=== PATIENT | female | born 2000 | race Hispanic/Latino ===

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

== ENCOUNTER 2021-11-26 13:27 | Inpatient (IN) | payer MEDICAID, SELFPAY ==
[2021-11-26 13:47] LABS: Urine Blood 1+ (Negative); Urine Glucose Negative (Negative); Urine Protein Negative (Negative); Urine pH 7.5 (5.0-7.0)
[2021-11-26 14:39] LABS: Absolute Lymphocytes (CBC) 0.8 K/uL (0.7-4.9); Hematocrit 42.1 % (36.0-45.0); Lymphocytes % 5.5 % (15.3-44.8); MPV 9.4 fL (7.6-11.3); RBC Red Blood Cell Count 4.54 M/uL (3.86-4.86)
[2021-11-26] MEDS ORDERED: NA CHLORIDE 0.9% 1,000 ML ONE (14:46)
[2021-11-26] MEDS ORDERED: MORPHINE 4 MG/ML SYR ONE (14:46)
[2021-11-26] MEDS ORDERED: ONDANSETRON 4 MG/2 ML VIAL ONE ×2 (14:46→18:25)
[2021-11-26 15:07] LABS: Albumin 4.2 g/dL (3.4-5.0); Bilirubin Total 0.5 mg/dL (0.2-1.0); Potassium 3.9 mmol/L (3.5-5.1); Protein, Total 7.6 g/dL (6.4-8.2)
--- NOTE | 2021-11-26 16:08 | RAD REPORT ---
EXAM DESCRIPTION: CT - Abdomen Pelvis W Contrast - 11/26/2021 3:41 pm CLINICAL HISTORY: RUQ, R flank and RLQ pain COMPARISON: Abdomen Pelvis W Contrast dated 08/31/2019 TECHNIQUE: Biphasic, helical CT imaging of the abdomen and pelvis was performed following 100 ml non -ionic IV contrast. No oral contrast administered. All CT scans are performed using dose optimization technique as appropriate and may include automated exposure control or mA/KV adjustment according to patient size. FINDINGS: No suspicious findings in the lung bases. The liver, spleen, and pancreas show no suspicious findings. Gallbladder and biliary tree are also wi thout suspicious finding. Symmetric renal function is seen with no hydronephrosis or suspicious renal mass. No pyelonephritis o r acute parenchymal process. No bladder abnormalities. No adrenal abnormalities. Uterus and ovaries s how no suspicious findings. Incidental 17 millimeter left ovarian cyst present. No gastric dilatation gastric wall thickening. Appendix is grossly abnormal. There is thickening and edema at the tip of the cecum. The appendix is at least 13 mm in diameter. No appendicolith present. Hough of the midportion and base are poorly defined. There is surrounding edematous/inflammatory soft tissue. Reactive free fluid is collecting in the dependent portion of the pelvis and in the right ad nexae. No defined abscess at this time. No extraluminal free air. Terminal ileum does not appear to b e involved to any measurable degree. No suspicious small bowel finding. The appendix is unremarkable other than the changes at the tip of the cecum. No hernia, mass or bulky lymphadenopathy. No suspicious bony findings. Findings telephoned to the referring clinician 4:05 p.m.. IMPRESSION: Acute appendicitis with high likelihood of perforation. Tip of the cecum is classic right lower quadrant location. The appendix tracks medially with the tip in the midline of the pelvis.
--- NOTE | 2021-11-26 16:14 | ER ---
Nurse's Notes [facility] Name: Kanchan Bro Age: 21 yrs Sex: Female : 2000 Arrival Date: 11/26/2021 Time: 13:29 Bed 25 Private MD: Diagnosis: Unspecified acute appendicitis Presentation: 11/26 13:33 Chief complaint: Patient states: i got real sharp pains on my RIGHT side that started tw2 last night. and then today again. its worse when i lay flat and also i have to go urinate often. Coronavirus screen: At this time, the client does not indicate any symptoms associated with coronavirus-19. Ebola Screen: Patient denies travel to an Ebola-affected area in the 21 days before illness onset. Initial Sepsis Screen: Does the patient meet any 2 criteria? HR > 90 bpm. No. Patient's initial sepsis screen is negative. Does the patient have a suspected source of infection? No. Patient's initial sepsis screen is negative. Risk Assessment: Do you want to hurt yourself or someone else? Patient reports no desire to harm self or others. Onset of symptoms was November 26, 2021. 13:33 Method Of Arrival: Ambulatory tw2 13:33 Acuity: BRINA 3 tw2 Triage Assessment: 13:35 General: Appears in no apparent distress. Behavior is calm, cooperative, appropriate tw2 for age. Pain: Complains of pain in right lower quadrant. GI: Reports lower abdominal pain, upper abdominal pain. : Reports urinary frequency. 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 - Social history:: Smoking status: Patient denies any tobacco usage or history of. Screenin:36 Abuse screen: Denies threats or abuse. Nutritional screening: No deficits noted. tw2 Tuberculosis screening: No symptoms or risk factors identified. Fall Risk None identified. Assessment: 15:00 General: Appears uncomfortable, Behavior is cooperative. Pain: Complains of pain in ww right lower quadrant. Neuro: Level of Consciousness is awake, alert, obeys commands, Oriented to person, place, time, situation, Moves all extremities. Gait is steady, Speech is normal. Cardiovascular: Patient's skin is warm and dry. Respiratory: Airway is patent Respiratory effort is even, unlabored, Respiratory pattern is regular, symmetrical. GI: Abdomen is non-distended, Abdomen is tender to palpation in right upper quadrant and right lower quadrant. Derm: Skin is intact, is healthy with good turgor, Skin is pink, warm \T\ dry. 16:15 Reassessment: Patient appears in no apparent distress at this time. No changes from previously documented assessment. Patient and/or family updated on plan of care and expected duration. Pain level reassessed. Patient is alert, oriented x 3, equal unlabored respirations, skin warm/dry/pink. 17:14 Reassessment: Patient appears in no apparent distress at this time. No changes from ww previously documented assessment. Patient and/or family updated on plan of care and expected duration. Pain level reassessed. Patient is alert, oriented x 3, equal unlabored respirations, skin warm/dry/pink. 18:14 Reassessment: Patient appears in no apparent distress at this time. No changes from ww previously documented assessment. Patient and/or family updated on plan of care and expected duration. Pain level reassessed. Patient is alert, oriented x 3, equal unlabored respirations, skin warm/dry/pink. transported to OR. Vital Signs: 13:33 BP 139 / 72; Pulse 103; Resp 17; Temp 98(TE); Pulse Ox 100% on R/A; Weight 78.47 kg tw2 (R); Height 5 ft. 7 in. (170.18 cm); Pain 10/10; 13:33 Body Mass Index 27.10 (78.47 kg, 170.18 cm) tw2 ED Course: 13:29 Patient arrived in ED. jj6 13:31 [facility] jh7 13:31 Sadi Barton MD is Attending Physician. jh7 13:35 Triage completed. tw2 13:36 Arm band placed on. tw2 14:03 Bed in low position. Call light in reach. tw2 14:17 Rosalia Lawson, RN is Primary Nurse. ww 15:43 CT Abd/Pelvis - IV Contrast Only In Process Unspecified. EDAR 16:12 Joao Wise MD is Hospitalizing Provider. [facility] 18:14 No provider procedures requiring assistance completed. Patient admitted, IV remains in ww place. Administered Medications: 14:40 Drug: NS 0.9% 1000 ml Route: IV; Rate: 1 bolus; Site: left antecubital; ww 14:41 Drug: Zofran (Ondansetron) 4 mg Route: IVP; Site: left antecubital; ww 14:49 Drug: morphine 4 mg Route: IVP; Infused Over: 4 mins; Site: left antecubital; ww 16:45 Drug: Zosyn (piperacillin-tazobactam) 3.375 grams Route: IVPB; Infused Over: 60 mins; ww Site: left antecubital; 17:34 Drug: Flagyl (metroNIDAZOLE) 500 mg Volume: 100 ml; Route: IVPB; Rate: 200 ml/hr; ww Infused Over: 30 mins; Site: left antecubital; Medication: 13:49 VIS not applicable for this client. [facility] Outcome: 16:14 Decision to Hospitalize by Provider. [facility] 18:14 Admitted to OR accompanied by nurse, via stretcher, with chart. 18:14 Condition: stable 18:14 Instructed on the need for admit. 18:15 Patient left the ED. Signatures: Dispatcher [employer] Karly Arias, RN RN tw2 Ivory Rocha jj6 Rosalia Lawson RN RN ww Ivory Palomino, RECRUITING INTERN RECRUITING INTERN [facility]
--- NOTE | 2021-11-26 16:15 | EDPHYS ---
Physician Documentation [facility] Name: Kanchan Bro Age: 21 yrs Sex: Female : 2000 Arrival Date: 11/26/2021 Time: 13:29 Bed 25 Private MD: JENSEN Physician Sadi Barton HPI: 11/26 13:40 This 21 yrs old Female presents to ER via Ambulatory with complaints of jh7 Abdominal Pain. 13:40 The patient presents with abdominal pain in the right upper quadrant, right lower jh7 quadrant. Onset: The symptoms/episode began/occurred last night. Associated signs and symptoms: Pertinent negatives: nausea, vomiting, and diarrhea, chest pain, fever. Patient reports right upper quadrant pain radiating to her right flank and right lower quadrant since 1 AM. Denies nausea vomiting, diarrhea, and fever. States that it might possibly be a pulled muscle, but wants to ensure that it is not her gallbladder or appendix. Rates pain as 10 out of 10. No past medical history.. 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 - Social history:: Smoking status: Patient denies any tobacco usage or history of. ROS: 13:40 Constitutional: Negative for fever, chills, and weight loss, ENT: Negative for injury, jh7 pain, and discharge, Neck: Negative for injury, pain, and swelling, Cardiovascular: Negative for chest pain, palpitations, and edema, Respiratory: Negative for shortness of breath, cough, wheezing, and pleuritic chest pain, Back: Negative for injury and pain, Skin: Negative for injury, rash, and discoloration, Neuro: Negative for headache, weakness, numbness, tingling, and seizure. 13:40 Abdomen/GI: Positive for abdominal pain, Negative for nausea, vomiting, and diarrhea, dysphagia, rectal bleeding. 13:40 All other systems are negative. Exam: 13:40 Abdomen/GI: Inspection: abdomen appears normal, Bowel sounds: normal, Palpation: mild jh7 abdominal tenderness, in the right upper quadrant and right lower quadrant. 13:40 Constitutional: This is a well developed, well nourished patient who is awake, alert, jh7 and in no acute distress. Head/Face: Normocephalic, atraumatic. ENT: Nares patent. No nasal discharge, no septal abnormalities noted. Tympanic membranes are normal and external auditory canals are clear. Oropharynx with no redness, swelling, or masses, exudates, or evidence of obstruction, uvula midline. Mucous membranes moist. Cardiovascular: Regular rate and rhythm with a normal S1 and S2. No gallops, murmurs, or rubs. Normal PMI, no JVD. No pulse deficits. Respiratory: Lungs have equal breath sounds bilaterally, clear to auscultation and percussion. No rales, rhonchi or wheezes noted. No increased work of breathing, no retractions or nasal flaring. Back: No spinal tenderness. No costovertebral tenderness. Full range of motion. Skin: Warm, dry with normal turgor. Normal color with no rashes, no lesions, and no evidence of cellulitis. Neuro: Awake and alert, GCS 15, oriented to person, place, time, and situation. Normal gait. Vital Signs: 13:33 BP 139 / 72; Pulse 103; Resp 17; Temp 98(TE); Pulse Ox 100% on R/A; Weight 78.47 kg tw2 (R); Height 5 ft. 7 in. (170.18 cm); Pain 10/10; 13:33 Body Mass Index 27.10 (78.47 kg, 170.18 cm) tw2 MDM: 13:57 Patient medically screened. [facility] 16:05 Differential diagnosis: appendicitis, cholecystitis, gastritis, gastroesophageal reflux [facility] disease. Data reviewed: vital signs, nurses notes, lab test result(s), radiologic studies, CT scan. Data interpreted: Pulse oximetry: is 100 %. Interpretation: normal. Counseling: I had a detailed discussion with the patient and/or guardian regarding: the historical points, exam findings, and any diagnostic results supporting the discharge/admit diagnosis, the need for further work-up and treatment in the hospital. Physician consultation: Joao Wise MD was called at 16:05, was contacted at 16:05, regarding patient's condition, and will see patient in ED, would like medications started, Zosyn, Flagyl. ED course: The patient was admitted under inpatient status for acute appendicitis with likely perforation. The patient's pain was relieved after morphine was administered. Explained to the patient that she would meet the general surgeon soon, and will be needing surgery. Answered all of the patient's questions and concerns.. 11/26 13:47 Order name: Urine Dipstick-Ancillary; Complete Time: 14:28 [facility] 11/26 13:50 Order name: CBC with Diff; Complete Time: 15:05 [facility] 11/26 13:50 Order name: CMP; Complete Time: 15:15 [facility] 11/26 13:50 Order name: Lipase; Complete Time: 15:15 [facility] 11/26 13:50 Order name: Urine Microscopic Only [facility] 11/26 14:55 Order name: Urine --Ancillary (enter results); Complete Time: 15:15 11/26 13:50 Order name: CT Abd/Pelvis - IV Contrast Only; Complete Time: 16:12 [facility] 11/26 16:12 Order name: SARS-COV-2 RT PCR (Document "Date of Onset" if Symptomatic) [facility] 11/26 17:24 Order name: Basic Metabolic Panel [facility] 11/26 17:24 Order name: Basic Metabolic Panel [facility] 11/26 17:24 Order name: CBC with Automated Diff [facility] 11/26 17:24 Order name: CBC with Automated Diff [facility] 11/26 13:48 Order name: Urine Dipstick-Ancillary (obtain specimen); Complete Time: 13:48 [facility] 11/26 13:48 Order name: Urine Test (obtain specimen); Complete Time: 13:48 [facility] 11/26 13:50 Order name: IV Saline Lock; Complete Time: 14:33 [facility] 11/26 13:50 Order name: Labs collected and sent; Complete Time: 14:33 [facility] 11/26 17:24 Order name: NPO EDMS Administered Medications: 14:40 Drug: NS 0.9% 1000 ml Route: IV; Rate: 1 bolus; Site: left antecubital; ww 14:41 Drug: Zofran (Ondansetron) 4 mg Route: IVP; Site: left antecubital; ww 14:49 Drug: morphine 4 mg Route: IVP; Infused Over: 4 mins; Site: left antecubital; ww 16:45 Drug: Zosyn (piperacillin-tazobactam) 3.375 grams Route: IVPB; Infused Over: 60 mins; ww Site: left antecubital; 17:34 Drug: Flagyl (metroNIDAZOLE) 500 mg Volume: 100 ml; Route: IVPB; Rate: 200 ml/hr; ww Infused Over: 30 mins; Site: left antecubital; Disposition Summary: 11/26/21 16:14 Hospitalization Ordered Hospitalization Status: Inpatient Admission [facility] Provider: Joao Wise [facility] Location: Telemetry/MedSur (Inpatient) [facility] Condition: Stable [facility] Problem: new [facility] Symptoms: have improved [facility] Bed/Room Type: Standard [facility] Room Assignment: [facility] Diagnosis - Unspecified acute appendicitis [facility] Forms: - Medication Reconciliation Form [facility] - SBAR form [facility] Addendum: 12/03/2021 13:44 Co-signature as Attending Physician, Sadi Barton MD I agree with the assessment and c may plan of care. Signatures: Dispatcher [employer] EDSadi Constantino MD MD cha Wise, Tara, RN RN 2 Rosalia Lawson RN RN ww Ivory Palomino, NUCLEAR LOGGING ENGINEER NUCLEAR LOGGING ENGINEER [facility]
[2021-11-26] MEDS ORDERED: NA CHLORIDE 0.9% 100 ML ONE (16:23)
[2021-11-26] MEDS ORDERED: METRONIDAZOLE 500mg IVPB 500 MG/100 ML BAG IV ONE (16:24)
[2021-11-26] MEDS ORDERED: PIPERACIL/TAZO 3.375 GM VIAL IV ONE (16:24)
[2021-11-26] MEDS ORDERED: MORPHINE 4 MG/ML SYR IV PRN (17:20)
[2021-11-26] MEDS ORDERED: ONDANSETRON 4 MG/2 ML VIAL IV PRN (17:20)
[2021-11-26] MEDS ORDERED: NA CHLORIDE 0.9% 1,000 ML IV SCH (18:00)
[2021-11-26] MEDS ORDERED: Ringers Lactate 1,000 ML IV ONE ×2 (18:06→21:16)
[2021-11-26] MEDS ORDERED: SUCCINYLCHOLINE 20 MG/ML (10 ML) IV ONE (18:12)
[2021-11-26] MEDS ORDERED: propofoL 200 MG/20 ML VIAL IV ONE (18:19)
[2021-11-26] MEDS ORDERED: LIDOCAINE 1% MPF 5 ML VIAL ONE (18:20)
[2021-11-26] MEDS ORDERED: ROCURONIUM 50 MG/5 ML VIAL IV ONE (18:20)
[2021-11-26] MEDS ORDERED: FENTANYL CITR 100 MCG/2 ML ONE ×3 (18:20→20:12)
[2021-11-26] MEDS ORDERED: dexAMETHasone 10 MG/ML VIAL ONE (18:24)
[2021-11-26] MEDS ORDERED: KETOROLAC 30 MG/ML INJ ONE (18:25)
--- NOTE | 2021-11-26 18:48 | P.HP ---
Date of Service: 11/26/21 PC: This 20-year-old female presented to the emergency room with severe right lower quadrant abdominal pain for diagnosis and treatment. HPC: Patient woke last night with abdominal pain. Was able to get back to sleep with this morning of this the pain was still there. Has intensified over the day. Is now located in the right lower quadrant. Does not hurt when she sits up when she lays down it causes her intense discomfort. PSHx: Negative PMHx: Negative Social Hx: No known allergies Sys R: No cough, wheeze, shortness of breath. No chest pain or palpitations. No urinary complaints O/E: Awake alert vital signs are stable HEENT: Not jaundiced Chest: Air entry equal bilaterally Abd: Tender with guarding in the right lower quadrant [place]: Intact Data: CT scan supports clinical diagnosis of acute appendicitis Impression: Acute abdomen with appendicitis Plan: I will taken the operating room for laparoscopic possible open appendectomy. The risks of this procedure have been discussed. The possibility of bleeding, infection, injury to bowel and surrounding structures was outlined. The possibility of abscess formation and need for further surgeries and procedures was discussed. She understands and wants us to proceed.
[2021-11-26] MEDS ORDERED: GLYCOPYRROLATE 0.2 MG/ML SYR ONE (19:05)
[2021-11-26] MEDS ORDERED: NEOSTIGMINE 1 MG/ML -10 ML VIAL ONE (19:06)
--- NOTE | 2021-11-26 21:04 | P.OP ---
Preoperative diagnosis: Acute abdomen Postoperative diagnosis: Acute appendicitis with rupture Primary procedure: Laparoscopic appendectomy Secondary procedure: Drainage of abscess Anesthesia: General Estimated blood loss: Less than 20 cc Specimen: 1 appendix and omentum Operative Technique: The patient brought the operating room and placed supine on the table. After the induction of adequate general endotracheal anesthesia, the area of the abdomen was prepped with a DuraPrep solution, and she was draped in usual aseptic manner. Attention was turned towards the umbilicus. A subumbilical incision was made. This was brought down through the skin and subcutaneous tissue. We were now able to visualize the fascia in the anterior midline. This was grasped between hemostats, and we attempted to pass a Veress needle. The first attempt was unsuccessful. We were now able to again elevate the fascia and cut down onto her almost directly inside the peritoneum. A finger was placed inside to allow access. Through this we were able to introduce a 12 mm trocar. The pneumoperitoneum was now established. A 5 mm trocar was placed in the lower midline, and another on the right lateral side of the abdomen. Looking down towards the pelvis we could see that there was a large inflammatory process involving omentum adherent to the anterior abdominal wall. This was just a behind where the pubic bone was. As we gently maneuvered around this we could see christos pus coming from this. Katerina this inflammatory process to the right lateral side we found that the appendix was involved in this omental mass. The base of the appendix was identified. We could see part of the appendix coming out of this area. We divided the appendix near the base. We were now able to trace this inferiorly. We could see that the omentum was adherent and holding this inflamed appendix to the abdominal wall. The omentum and appendix were now taken down in block using the LigaSure to ensure adequate hemostasis. The appendix and omentum having been detached was now placed into an Endo Catch and brought out through the umbilical trocar site. Attention was turned back to the right lower quadrant. On inspection of the base of the appendix we could see that this stump of the appendix was still attached to the cecum itself. A window was established at the base of the appendix at its junction with the cecum. We were able to gently dissect this out and again placed the linear stapling device across the cecum. This was fired. This portion of cecum and appendix was now detached from the mesentery using the LigaSure. The specimen was placed into the Endo Catch and again brought out through the umbilical trocar site. After having done this tedious dissection, the area of the pelvis was irrigated with a copious amount of a saline solution. The effluent was aspirated. A Bam-Pate drain was placed down the right lateral sidewall of the abdomen and down into the true pelvis. This was brought out through our inferior trocar site. Once again the abdomen was inspected to ensure adequate hemostasis. The umbilical trocar site was now approximated using the Endo Close and absorbable sutures. Good closure having been obtained, the new motor needle was collapsed, the trochars removed, and elizabeth applied to the skin. At the end of the procedure she was in a stable condition was sent to the recovery room. Needle sponge instrument count were correct.
[2021-11-26] MEDS: HYDROMORPHONE HCL 1 MG/ML INJ ONE ×3 (21:46→21:57)
[2021-11-26 22:18] VITALS: BMI 26.6
[2021-11-26] MEDS: Levofloxacin500mg IV 500 MG/100 ML BAG IV SCH (22:51)
[2021-11-26] MEDS: HYDROCODONE/APAP 7.5/325 MG TAB PO PRN (23:30)
[2021-11-27] MEDS: METRONIDAZOLE 500mg IVPB 500 MG/100 ML BAG IV SCH ×3 (00:42→16:31)
[2021-11-27] MEDS: HYDROCODONE/APAP 7.5/325 MG TAB PO PRN ×3 (04:57→22:08)
[2021-11-27 06:07] LABS: Absolute Lymphocytes (CBC) 0.6 K/uL (0.7-4.9); Hematocrit 30.5 % (36.0-45.0); Lymphocytes % 3.5 % (15.3-44.8); MPV 9.4 fL (7.6-11.3)
[2021-11-27 06:22] LABS: Potassium 3.9 mmol/L (3.5-5.1)
[2021-11-27 09:18] LABS: Blood Morphology Comment NOT SEEN (NOT SEEN); Platelet Estimate ADEQ; White Blood Cell Scan OK (OK)
--- NOTE | 2021-11-27 16:16 | P.PN ---
Date of Service: 11/27/21 S: Patient feels better today, still slow to ambulate. Still has drainage through HOLLY drain. Pain is well controlled. O: Vital signs are stable, adequate urine output. 40 cc via HOLLY drain, still a tad bloody. A: Stable status post laparoscopic appendectomy for ruptured appendix P: I will keep her 1 more day on IV antibiotics. If patient remains afebrile, will DC in a.m. Patient has been instructed to ambulate in the halls, continue her incentive spirometry. She may shower.
[2021-11-27] MEDS: Levofloxacin500mg IV 500 MG/100 ML BAG IV SCH (21:32)
[2021-11-27] MEDS: Ringers Lactate 1,000 ML IV SCH (22:54)
[2021-11-28] MEDS: METRONIDAZOLE 500mg IVPB 500 MG/100 ML BAG IV SCH ×3 (00:53→17:09)
[2021-11-28 06:34] LABS: Absolute Lymphocytes (CBC) 1.7 K/uL (0.7-4.9); Hematocrit 25.2 % (36.0-45.0); RBC Red Blood Cell Count 2.71 M/uL (3.86-4.86)
[2021-11-28] MEDS: HYDROCODONE/APAP 7.5/325 MG TAB PO PRN ×3 (08:26→23:29)
[2021-11-28] MEDS: Ringers Lactate 1,000 ML IV SCH ×2 (08:27→17:10)
--- NOTE | 2021-11-28 16:58 | P.PN ---
Date of Service: 11/28/21 S: patient has no specific complaints. Feels good. Asking about the drainage from her HOLLY drain. Pain is well controlled on oral medication at this point. O: Vital signs are stable, not tachycardic. Looks well. Abdomen is soft, coming out of the HOLLY drain is some bloody drainage. Most likely from the omentum that we had to resect. A: Continue current therapy, maintain on IV antibiotics. P: I will keep her 1 more day. We will observe the drainage from the HOLLY drain. She also requires IV antibiotics. Anticipate discharge perhaps tomorrow.
[2021-11-28] MEDS: Levofloxacin500mg IV 500 MG/100 ML BAG IV SCH (22:13)
[2021-11-29] MEDS: METRONIDAZOLE 500mg IVPB 500 MG/100 ML BAG IV SCH ×3 (00:49→16:20)
[2021-11-29] MEDS: Ringers Lactate 1,000 ML IV SCH ×2 (05:01→08:20)
[2021-11-29] MEDS: HYDROCODONE/APAP 7.5/325 MG TAB PO PRN ×3 (05:45→21:14)
--- NOTE | 2021-11-29 13:24 | P.PN ---
Date of Service: 11/29/21 S: Patient has no specific complaints today, feeling good, has been up ambulating more. Still not much of an appetite. O: Vital signs are stable, HOLLY drain putting about 30 cc of bloody drainage last shift. Abdomen is soft, has occasional bowel sounds, passing gas per rectum still no bowel movements. Has some oral thrush A: Patient is surgically stable, most likely bleeding from area of omental resection. We were able to clip the appendiceal artery etc. Patient is more active drainage is becoming less thick P: Patient is been encouraged to get up and ambulate today, she will get in the shower, she has good effort on her incentive spirometry. We will try and advance her diet, and depending on tomorrow's drainage from HOLLY drain, may be eligible for discharge.
[2021-11-29] MEDS: NYSTATIN 500,000 UNIT/5 ML UDC PO SCH ×3 (14:12→21:14)
[2021-11-29] MEDS: Levofloxacin500mg IV 500 MG/100 ML BAG IV SCH (21:14)
[2021-11-30] MEDS: METRONIDAZOLE 500mg IVPB 500 MG/100 ML BAG IV SCH ×2 (00:13→08:55)
[2021-11-30] MEDS: HYDROCODONE/APAP 7.5/325 MG TAB PO PRN ×2 (03:59→11:13)
[2021-11-30 04:34] VITALS: O2SAT 98
[2021-11-30] MEDS: NYSTATIN 500,000 UNIT/5 ML UDC PO SCH ×2 (08:55→13:21)
[2021-11-30 09:39] VITALS: TEMP 97.3
[2021-11-30 12:35] VITALS: BP 128/66
--- NOTE | 2021-12-13 14:33 | P.DS ---
Admission Date: 11/27/21 Discharge Date: 12/13/21 Discharge Condition: GOOD Reason for Admission: Acute postoperative abdominal pain Procedures: Laparoscopic appendectomy, drainage of intra-abdominal abscess Brief History of Present Illness: This patient presented to the emergency room with severe abdominal pain for diagnosis and treatment. Says the pain began the night before her admission. Had vague tenderness, not sure if she had a muscular injury, or where the pain was coming from. Hospital Course: The patient was evaluated in the emergency room. She was found to have acute appendicitis with possible rupture. She was brought to the operating room for laparoscopic appendectomy. At that time we also drained a pelvic abscess. A Bam-Pate drain was placed. The patient did well over the following days. She is up ambulating, remains afebrile, and is being discharged home. She also has some pain medicine. Vital Signs/Physical Exam: Temp Pulse Resp BP Pulse Ox 97.3 F 83 18 128/66 98 11/30/21 12:00 11/30/21 12:00 11/30/21 12:00 11/30/21 12:00 11/30/21 12:00 Laboratory Data at Discharge: WBC 9.6 K/uL (4.3-10.9) D 11/28/21 06:15 Hgb 8.7 g/dL (12.0-15.0) L 11/28/21 06:15 Hct 25.2 % (36.0-45.0) L D 11/28/21 06:15 Plt Count 174 K/uL (152-406) 11/28/21 06:15 Sodium 134 mmol/L (136-145) L 11/27/21 05:24 Potassium 3.9 mmol/L (3.5-5.1) 11/27/21 05:24 BUN 8 mg/dL (7-18) 11/27/21 05:24 Creatinine 0.58 mg/dL (0.55-1.3) 11/27/21 05:24 Glucose 143 mg/dL (74-106) H 11/27/21 05:24 Total Bilirubin 0.5 mg/dL (0.2-1.0) 11/26/21 14:31 AST 17 U/L (15-37) 11/26/21 14:31 ALT 19 U/L (12-78) 11/26/21 14:31 Alkaline Phosphatase 70 U/L (45-117) 11/26/21 14:31 Lipase 53 U/L (73-393) L 11/26/21 14:31 Home Medications: NK [No Home Meds] 11/26/21 Physician Discharge Instructions: DC IV, DC home. Ambulate at home. Continue incentive spirometry. You may shower. Empty drain as directed. Record the amount 24 hours before being seen in the office. Any questions or problems, go to the emergency room, or contact me. Diet: Regular Activity: Ad kasia Followup: Joao Wise MD [ACTIVE - CAN ADMIT] - Unknown,U [Primary Care Provider] -
== END 2021-11-30 14:49 | disposition home or self-care (01) | DRG 339 ==
LOC: ER 13:27 → ERHOLD 17:18 → INTOOBSV 17:18 → 2ND 20:26 → OBSVTOIN 11-27 09:43
PROVIDERS: ADMIT Surgery; ATTEND Surgery
PROC: 0DTJ4ZZ Resection of Appendix, Percutaneous Endoscopic Approach (ICD-10-PCS; principal; 2021-11-26 18:30)
DX: K35.33 Acute appendicitis with perforation, localized peritonitis, and gangrene, with abscess (principal); B37.0 Candidal stomatitis; Z20.822 Contact with and (suspected) exposure to COVID-19
CPT/HCPCS: 36415; 74177; 80048; 80053; 81003; 81025; 83690; 85025; 88304; 94010; 96374; 96375; 99285; G0378; J0330; J1100; J1170; J2405; J2543; J2704; J2710; J3010; J3490; J7030; J7120; Q9967; U0003

== ENCOUNTER 2021-12-09 11:16 | Inpatient (IN) | payer SELFPAY ==
[2021-12-09 12:16] LABS: Urine Blood 2+ (Negative); Urine Glucose Negative (Negative); Urine Protein 1+ (Negative); Urine pH 7.5 (5.0-7.0)
[2021-12-09] MEDS ORDERED: MORPHINE 4 MG/ML SYR ONE (12:48)
[2021-12-09] MEDS ORDERED: NA CHLORIDE 0.9% 1,000 ML ONE (12:48)
[2021-12-09] MEDS ORDERED: ONDANSETRON 4 MG/2 ML VIAL ONE (12:48)
[2021-12-09] MEDS ORDERED: FAMOTIDINE 20 MG/2 ML VIAL IV ONE (12:49)
[2021-12-09 13:23] LABS: Absolute Lymphocytes (CBC) 1.2 K/uL (0.7-4.9); Hematocrit 31.6 % (36.0-45.0); Lymphocytes % 6.1 % (15.3-44.8); MCV 91.2 fL (80-100); MPV 7.6 fL (7.6-11.3); RBC Red Blood Cell Count 3.47 M/uL (3.86-4.86)
[2021-12-09 13:40] LABS: Albumin 3.5 g/dL (3.4-5.0); Bilirubin Total 0.7 mg/dL (0.2-1.0); Potassium 3.7 mmol/L (3.5-5.1); Protein, Total 8.2 g/dL (6.4-8.2)
[2021-12-09] MEDS ORDERED: NA CHLORIDE 0.9% 100 ML ONE (13:47)
[2021-12-09] MEDS ORDERED: PIPERACIL/TAZO 3.375 GM VIAL IV ONE (13:48)
[2021-12-09 13:55] LABS: Blood Morphology Comment NOT SEEN (NOT SEEN); Platelet Estimate INCR; White Blood Cell Scan OK (OK)
[2021-12-09] MEDS ORDERED: MEPERIDINE HCL 25 MG/ML SYR ONE (14:18)
--- NOTE | 2021-12-09 14:21 | RAD REPORT ---
EXAM DESCRIPTION: CTAbdomen Pelvis W Contrast - 12/09/2021 2:06 pm CLINICAL HISTORY: RLQ abdominal pain COMPARISON: Abdomen Pelvis W Contrast dated 11/26/2021; Abdomen Pelvis W Contrast dated 08/31/2019 TECHNIQUE: CT of the abdomen and pelvis was performed. All CT scans are performed using dose optimization technique as appropriate and may include automated exposure control or mA/KV adjustment according to patient size. FINDINGS: Lower chest: No acute abnormality. Liver: No acute abnormality or suspicious lesions. Biliary: No biliary ductal dilatation. Stomach: No significant focal abnormality. Duodenum: No significant focal abnormality. Pancreas: No significant abnormality. Spleen: No significant abnormality. Adrenal: No suspicious lesions. Kidney/ureter: Mild bilateral hydroureteronephrosis. Retroperitoneum: Reactive sized retroperitoneal lymph nodes. Vascular: No aneurysm. Bowel: No bowel obstruction. Recent appendectomy.. Reactive thickening of the sigmoid. Peritoneum: Multiloculated enhancing fluid collection in the pelvis. In maximal dimension, the collec tion measures 12.1 cm x 11.4 cm x 11.9 cm. Bladder: Grossly unremarkable. Reproductive: No adnexal masses. Bones: No acute fracture. Other: n/a IMPRESSION: Large multiloculated enhancing fluid collection(s) in the pelvis concerning for abscess. Recent appendectomy. The multiple loculations would make percutaneous guided drainage challenging as more than one drain may be needed. Mild left sided hydroureteronephrosis.
--- NOTE | 2021-12-09 14:54 | EDPHYS ---
Physician Documentation [facility] Name: Kanchan Bro Age: 21 yrs Sex: Female : 2000 Arrival Date: 12/09/2021 Time: 11:18 Bed 13 Private MD: ED Physician Alexy Villegas HPI: 12/09 17:20 This 21 yrs old Female presents to ER via Ambulatory with complaints of Post kdr Surgical Pain, Low Back Pain. 17:20 Patient has had 2 days of right flank and right lower quadrant pain. On the of kdr this month she had her appendix removed. Patient had been well until 2 days ago she began to have pain in her right lower quadrant and right flank. Since then the pain has persisted and become worse. She had some nausea but no vomiting. She denies any change in her bowel or bladder habits.. Onset: The symptoms/episode began/occurred gradually, 2 day(s) ago. Severity of symptoms: At their worst the symptoms were mild moderate just prior to arrival, in the emergency department the symptoms are unchanged. The patient has not experienced similar symptoms in the past. The patient has been recently seen by a physician: Spoke with Dr. Wise and he indicated that he had seen the patient 2 to 3 days ago which time she had no complaint. MANAGER CALL: 11:42 LMP 12/08/2021 aa5 Historical: - Allergies: 11:44 No Known Allergies; aa5 - Home Meds: 11:44 None [Active]; aa5 - PMHx: 11:44 None; aa5 - PSHx: 11:44 Appendectomy; aa5 - Immunization history:: Adult Immunizations unknown. - Social history:: Smoking status: Patient denies any tobacco usage or history of. ROS: 17:20 Constitutional: Negative for fever, chills, and weight loss, Eyes: Negative for injury, kdr pain, redness, and discharge, ENT: Negative for injury, pain, and discharge, Neck: Negative for injury, pain, and swelling, Cardiovascular: Negative for chest pain, palpitations, and edema, Respiratory: Negative for shortness of breath, cough, wheezing, and pleuritic chest pain, : Negative for injury, bleeding, discharge, and swelling, MS/Extremity: Negative for injury and deformity, Skin: Negative for injury, rash, and discoloration, Neuro: Negative for headache, weakness, numbness, tingling, and seizure activity. Psych: Negative for depression, anxiety, suicide ideation, homicidal ideation, and hallucinations, Allergy/Immunology: Negative for hives, rash, and allergies, Endocrine: Negative for neck swelling, polydipsia, polyuria, polyphagia, and marked weight changes, Hematologic/Lymphatic: Negative for swollen nodes, abnormal bleeding, and unusual bruising. 17:20 Abdomen/GI: Positive for abdominal pain, nausea, Negative for anorexia, dysphagia, hematemesis, black/tarry stool, rectal pain, rectal bleeding, bowel incontinence. Exam: 17:20 Constitutional: This is a well developed, well nourished patient who is awake, alert, kdr and in no acute distress. Head/Face: Normocephalic, atraumatic. Eyes: Pupils equal round and reactive to light, extra-ocular motions intact. Lids and lashes normal. Conjunctiva and sclera are non-icteric and not injected. Cornea within normal limits. Periorbital areas with no swelling, redness, or edema. Neck: Trachea midline, no thyromegaly or masses palpated, and no cervical lymphadenopathy. Supple, full range of motion without nuchal rigidity, or vertebral point tenderness. No Meningismus. Chest/axilla: Normal chest wall appearance and motion. Nontender with no deformity. No lesions are appreciated. Cardiovascular: Regular rate and rhythm with a normal S1 and S2. No gallops, murmurs, or rubs. Normal PMI, no JVD. No pulse deficits. Respiratory: Lungs have equal breath sounds bilaterally, clear to auscultation and percussion. No rales, rhonchi or wheezes noted. No increased work of breathing, no retractions or nasal flaring. Skin: Warm, dry with normal turgor. Normal color with no rashes, no lesions, and no evidence of cellulitis. MS/ Extremity: Pulses equal, no cyanosis. Neurovascular intact. Full, normal range of motion. Neuro: Awake and alert, GCS 15, oriented to person, place, time, and situation. Cranial nerves II-XII grossly intact. Motor strength 5/5 in all extremities. Sensory grossly intact. Cerebellar exam normal. Normal gait. Psych: Awake, alert, with orientation to person, place and time. Behavior, mood, and affect are within normal limits. 17:20 Abdomen/GI: Inspection: abdomen appears normal, Patient has several incisions from the laparoscopic appendectomy previously performed. There is appear to be healing well without any indication of infection, Bowel sounds: normal, Palpation: soft, mild abdominal tenderness, in the suprapubic area, posterior aspect of right lateral abdomen, anterior aspect of right lateral abdomen and right lower quadrant, rebound tenderness, is not appreciated. Vital Signs: 11:42 BP 130 / 91; Pulse 105; Resp 20 S; Temp 98.4(TE); Pulse Ox 100% on R/A; Weight 76.2 kg aa5 (R); Height 5 ft. 7 in. (170.18 cm) (R); 12:59 BP 118 / 68; Pulse 78; Resp 18; Temp 98.3; Pulse Ox 100% on R/A; bh1 13:37 BP 127 / 69; Pulse 76; Resp 20; Pulse Ox 98% on R/A; bh1 14:44 BP 124 / 74; Pulse 89; Resp 20; Pulse Ox 100% on R/A; bh1 15:35 BP 129 / 63; Pulse 92; Resp 20; Pulse Ox 100% ; Pain 5/10; bh1 17:12 BP 120 / 73; Pulse 90; Resp 18; Pulse Ox 100% on R/A; bh1 11:42 Body Mass Index 26.31 (76.20 kg, 170.18 cm) aa5 MDM: 14:53 Patient medically screened. kdr 17:20 Data reviewed: vital signs, nurses notes, lab test result(s), radiologic studies. kdr Counseling: I had a detailed discussion with the patient and/or guardian regarding: the historical points, exam findings, and any diagnostic results supporting the discharge/admit diagnosis, lab results, radiology results, the need for further work-up and treatment in the hospital. Physician consultation:. ED course: Prior to admission I have spoke with Dr. Wise as well as Dr. Garrett.. 12/09 12:16 Order name: Urine Dipstick-Ancillary; Complete Time: 13:31 EDMS 12/09 12:17 Order name: Urine --Ancillary (enter results); Complete Time: 13:31 kj1 12/09 12:19 Order name: CBC with Diff; Complete Time: 14:11 kdr 12/09 12:19 Order name: CMP; Complete Time: 13:53 [facility] 12/09 12:19 Order name: Lipase; Complete Time: 13:53 [facility] 12/09 13:55 Order name: COVID-19 SARS RT PCR (Document "Date of Onset" if Symptomatic) kj1 12/09 13:56 Order name: CBC Smear Scan; Complete Time: 14:11 EDMS 12/09 14:44 Order name: Lactate [facility] 12/09 15:03 Order name: Blood Culture Adult (2) [facility] 12/09 15:59 Order name: CBC with Automated Diff EDMS 12/09 15:59 Order name: CBC with Automated Diff EDMS 12/09 15:59 Order name: Comprehensive Metabolic Panel EDMS 12/09 15:59 Order name: Comprehensive Metabolic Panel EDMS 12/09 15:59 Order name: Magnesium EDMS 12/09 12:19 Order name: CT Abd/Pelvis - IV Contrast Only; Complete Time: 14:30 [facility] 12/09 12:19 Order name: IV Saline Lock; Complete Time: 13:14 [facility] 12/09 12:19 Order name: Labs collected and sent; Complete Time: 13:14 [facility] 12/09 15:58 Order name: CONS Physician Consult EDMS 12/09 15:59 Order name: Full Liquid EDMS 12/09 15:59 Order name: Magnesium EDMS Administered Medications: 13:14 Drug: NS 0.9% 1000 ml Route: IV; Rate: 1 bolus; Site: right antecubital; ss 14:45 Follow up: IV Status: Completed infusion; IV Intake: 1000ml 1 13:18 Drug: morphine 4 mg Route: IVP; Infused Over: 4 mins; Site: right antecubital; ss 13:19 Follow up: Response: No adverse reaction 1 13:19 Drug: Pepcid (famotidine) 20 mg Route: IVP; Site: right antecubital; bh1 13:19 Follow up: Response: No adverse reaction 1 13:19 Drug: Zofran (Ondansetron) 4 mg Route: IVP; Site: right antecubital; bh1 13:19 Follow up: Response: No adverse reaction 1 14:16 Drug: Zosyn (piperacillin-tazobactam) 3.375 grams Route: IVPB; Infused Over: 60 mins; bh1 Site: right antecubital; 14:46 Follow up: IV Status: Completed infusion; IV Intake: 100ml bh1 14:17 Drug: Demerol (meperidine) 25 mg Route: IVP; Site: right antecubital; bh1 14:17 Follow up: Response: No adverse reaction bh1 15:10 Drug: Dilaudid (HYDROmorphone) 2 mg Route: IVP; Site: right antecubital; bh1 15:33 Follow up: Response: No adverse reaction bh1 Disposition Summary: 12/09/21 14:53 Hospitalization Ordered Hospitalization Status: Inpatient Admission kdr Provider: Bobby Beck Location: Telemetry/MedSurg (Inpatient) kdr Condition: Fair kdr Problem: new kdr Symptoms: have improved kdr Bed/Room Type: Standard kdr Room Assignment: 206(12/09/21 16:57) ss Diagnosis - Peritoneal abscess kdr Forms: - Medication Reconciliation Form kdr - SBAR form kdr Signatures: Dispatcher [employer] EDAlexy Sanchez MD MD kdr Juanita Leyva RN RN aa5 Breanna Song RN RN ss Aleida Houser RN RN bh1 Corrections: (The following items were deleted from the chart) 16:57 14:53 kdr ss
--- NOTE | 2021-12-09 14:54 | ER ---
Nurse's Notes [facility] Name: Kanchan Bro Age: 21 yrs Sex: Female : 2000 Arrival Date: 12/09/2021 Time: 11:18 Bed 13 Private MD: Diagnosis: Peritoneal abscess Presentation: 12/09 11:42 Chief complaint: Patient states: had appendectomy approximately 1 week ago at this [address] Pt c/o abd pain and lower back pain that began 2 days ago. Reports nausea, denies vomiting. Coronavirus screen: At this time, the client does not indicate any symptoms associated with coronavirus-19. Ebola Screen: Patient denies travel to an Ebola-affected area in the 21 days before illness onset. Initial Sepsis Screen: Does the patient meet any 2 criteria? HR > 90 bpm. Does the patient have a suspected source of infection? No. Patient's initial sepsis screen is negative. Risk Assessment: Do you want to hurt yourself or someone else? Patient reports no desire to harm self or others. Onset of symptoms was November 2021. 11:42 Acuity: BRINA 3 [facility] 11:42 Method Of Arrival: Ambulatory [facility] SACK FILLER: 11:42 LMP 12/08/2021 [facility] Historical: - Allergies: 11:44 No Known Allergies; [facility] - Home Meds: 11:44 None [Active]; [facility] - PMHx: 11:44 None; [facility] - PSHx: 11:44 Appendectomy; [facility] - Immunization history:: Adult Immunizations unknown. - Social history:: Smoking status: Patient denies any tobacco usage or history of. Screenin:07 Abuse screen: Denies threats or abuse. Nutritional screening: No deficits noted. [facility] Tuberculosis screening: No symptoms or risk factors identified. Fall Risk None identified. Assessment: 12:07 Reassessment: No changes from previously documented assessment. General: Appears in no [facility] apparent distress. uncomfortable, Behavior is calm, cooperative, appropriate for age. Pain: Complains of pain in left low back, right low back and pelvis Pain does not radiate. Pain currently is 6 out of 10 on a pain scale. Quality of pain is described as burning, throbbing, Pain began 2-3 days ago. Vital Signs: 11:42 BP 130 / 91; Pulse 105; Resp 20 S; Temp 98.4(TE); Pulse Ox 100% on R/A; Weight 76.2 kg aa5 (R); Height 5 ft. 7 in. (170.18 cm) (R); 12:59 BP 118 / 68; Pulse 78; Resp 18; Temp 98.3; Pulse Ox 100% on R/A; bh1 13:37 BP 127 / 69; Pulse 76; Resp 20; Pulse Ox 98% on R/A; bh1 14:44 BP 124 / 74; Pulse 89; Resp 20; Pulse Ox 100% on R/A; bh1 15:35 BP 129 / 63; Pulse 92; Resp 20; Pulse Ox 100% ; Pain 5/10; bh1 17:12 BP 120 / 73; Pulse 90; Resp 18; Pulse Ox 100% on R/A; bh1 11:42 Body Mass Index 26.31 (76.20 kg, 170.18 cm) aa5 ED Course: 11:18 Patient arrived in ED. rg4 11:42 Arm band placed on. aa5 11:44 Triage completed. aa5 11:44 Alexy Villegas MD is Attending Physician. kdr 11:59 Aleida Houser, SEAN is Primary Nurse. bh1 12:07 No apparent distress. Awaiting ED provider evaluation. bh1 12:07 Patient has correct armband on for positive identification. Pulse ox on. NIBP on. bh1 12:07 No provider procedures requiring assistance completed. bh1 12:58 Missed attempt(s): 20 gauge in right in left wrist. forearm. Bleeding controlled, band bh1 aid applied, catheter tip intact. 13:30 Inserted saline lock: 22 gauge in right antecubital area, using aseptic technique. 1 Blood collected. 13:37 No apparent distress. Resting quietly. Awaiting lab results, Awaiting CT Scan. bh1 14:07 CT Abd/Pelvis - IV Contrast Only In Process Unspecified. EDMS 14:44 No apparent distress. Resting quietly. Awaiting radiology results. bh1 14:48 Bobby Beck MD is Hospitalizing Provider. kdr 15:33 Blood Culture Adult (2) Sent. bh1 15:33 Lactate Sent. bh1 15:36 No apparent distress. Resting quietly. Awaiting bed assignment. bh1 17:12 No apparent distress. Resting quietly. Awaiting bed assignment. [facility] 17:32 Patient admitted, IV remains in place. [facility] Administered Medications: 13:14 Drug: NS 0.9% 1000 ml Route: IV; Rate: 1 bolus; Site: right antecubital; 14:45 Follow up: IV Status: Completed infusion; IV Intake: 1000ml [facility] 13:18 Drug: morphine 4 mg Route: IVP; Infused Over: 4 mins; Site: right antecubital; 13:19 Follow up: Response: No adverse reaction [facility] 13:19 Drug: Pepcid (famotidine) 20 mg Route: IVP; Site: right antecubital; [facility] 13:19 Follow up: Response: No adverse reaction [facility] 13:19 Drug: Zofran (Ondansetron) 4 mg Route: IVP; Site: right antecubital; [facility] 13:19 Follow up: Response: No adverse reaction [facility] 14:16 Drug: Zosyn (piperacillin-tazobactam) 3.375 grams Route: IVPB; Infused Over: 60 mins; [facility] Site: right antecubital; 14:46 Follow up: IV Status: Completed infusion; IV Intake: 100ml [facility] 14:17 Drug: Demerol (meperidine) 25 mg Route: IVP; Site: right antecubital; [facility] 14:17 Follow up: Response: No adverse reaction [facility] 15:10 Drug: Dilaudid (HYDROmorphone) 2 mg Route: IVP; Site: right antecubital; [facility] 15:33 Follow up: Response: No adverse reaction [facility] Medication: 12:07 VIS not applicable for this client. [facility] Intake: 14:45 IV: 1000ml; Total: 1000ml. [facility] 14:46 IV: 100ml; Total: 1100ml. [facility] Outcome: 14:53 Decision to Hospitalize by Provider. kdr 17:31 Admitted to Tele accompanied by tech, via wheelchair, room 206, Report called to [facility] JULEE ESTRADA 17:31 Condition: stable 17:31 Demonstrated understanding of instructions. 18:00 Patient left the ED. [facility] Signatures: Dispatcher [employer] EDAlexy Sanchez MD MD kdr Calderon, Audri RN RN aa5 Breanna Song RN RN ss Garcia, Rubi rg4 Houser, Aleida, RN RN bh1
[2021-12-09] MEDS ORDERED: HYDROMORPHONE HCL 1 MG/ML INJ ONE (15:13)
--- NOTE | 2021-12-09 15:57 | P.HP ---
Certification for Inpatient Patient admitted to: Inpatient With expected LOS: >2 Midnights Practitioner: I am a practitioner with admitting privileges, knowledge of patient current condition, hospital course, and medical plan of care. Services: Services provided to patient in accordance with Admission requirements found in Title 42 Section 412.3 of the Code of Federal Regulations Patient History Date of Service: 12/09/21 Reason for admission: intrabdominal abscess s/p lap appy History of Present Illness: 21yo F, no significant past medical history. Presents to ED due to severe right flank/lower back pain. She couldn't get comfortable. Pain began last night and was worsening. Slight nausea today. Pain worsened when trying to have a bowel movement. Denies fever/chills, no diarrhea. States if not for the pain, she "feels fine". She recently underwent lap appy ~2 weeks ago. She was noted to have ruptured appendicitis, had HOLLY Drain placed, and remained in the hospital for several days on IV antibiotics. Discharged home with pain medication. She was doing well until yesterday. In the ED, patient had leukocytosis to 19k, CT noted ~12cm diameter intrabdominal abscess with multiloculations. Radiology recommended against IR drainage due to likelihood of requiring multiple drains. Dr. Garrett was consulted and recommend admission for IV antibiotics. Allergies No Known Allergies Allergy (Verified 11/26/21 22:16) Home Medications: NK [No Home Meds] 11/26/21 - Past Medical/Surgical History Diabetic: No Past Medical History: Patient denies medical history -: laparoscopic appendectomy - Family History Family History: Reviewed- Non-Contributory - Social History Smoking Status: Never smoker Alcohol use: No CD- Drugs: No Caffeine use: Yes Place of Residence: Home Review of Systems 10-point ROS is otherwise unremarkable Physical Examination - Physical Exam General: Alert, Oriented x3, Mild distress HEENT: EOMI, Sclerae nonicteric Neck: Supple, No LAD Respiratory: Clear to auscultation bilaterally, Normal air movement Cardiovascular: No edema, Regular rate/rhythm Gastrointestinal: Non-distended, Other (surgical incisions healing well), Tenderness (RLQ on deep palpation, R flank) Musculoskeletal: No contractures, No tenderness Integumentary: No rashes, No significant lesion Neurological: Normal speech, Normal strength at 5/5 x4 extr, Normal affect - Studies Laboratory Data (last 24 hrs) 12/09/21 13:14: Sodium 135 L, Potassium 3.7, BUN 6 L, Creatinine 0.58, Glucose 98, Total Bilirubin 0.7, AST 11 L, ALT 14, Alkaline Phosphatase 60, Lipase 34 L 12/09/21 13:14: WBC 19.5 H D, Hgb 10.8 L, Hct 31.6 L D, Plt Count 459 H D Assessment and Plan - Advance Directives Does patient have a Living Will: No Does patient have a Durable POA for Healthcare: No Physician Review Additional Text: Problem List intrabdominal abscess s/p lap appy SIRS 06/22: leukocytosis: 19k, afebrile, no tachypnea, no tachycardia patient does not appear to be septic blood culture obtained, lactate negative given IV zosyn in ED continue zosyn ID and general surgery consulted large abscess pain medication as needed may require extending course of IV antibiotics if improves VTE: lovenox Code: full Dispo: home, ~3 days Time Spent Managing Pts Care (In Minutes): 65
[2021-12-09] MEDS: ENOXAPARIN 40 MG/0.4 ML SQ SCH (18:34)
[2021-12-09] MEDS: ONDANSETRON 4 MG/2 ML VIAL IV PRN (18:35)
[2021-12-09] MEDS: PIPER TAZO 3.375 GM in NA CHLORIDE 0.9% 100 ML IV SCH (18:35)
[2021-12-09] MEDS: NA CHLORIDE 0.9% 1,000 ML IV SCH (18:35)
[2021-12-09] MEDS: HYDROMORPHONE HCL 1 MG/ML INJ IV PRN ×2 (18:35→22:35)
[2021-12-09] MEDS: HYDROCODONE/APAP 5/325 MG TAB PO PRN (20:02)
[2021-12-09] MEDS ORDERED: POTASSIUM 25 MEQ EFFERV TAB PO ONE (21:00)
[2021-12-10] MEDS: PIPER TAZO 3.375 GM in NA CHLORIDE 0.9% 100 ML IV SCH ×3 (01:45→16:42)
[2021-12-10] MEDS: HYDROCODONE/APAP 5/325 MG TAB PO PRN ×4 (01:46→23:52)
[2021-12-10] MEDS: HYDROMORPHONE HCL 1 MG/ML INJ IV PRN ×5 (02:51→20:23)
[2021-12-10 04:28] LABS: Absolute Lymphocytes (CBC) 1.1 K/uL (0.7-4.9); Hematocrit 26.2 % (36.0-45.0); Lymphocytes % 5.6 % (15.3-44.8); MCV 90.9 fL (80-100); MPV 7.7 fL (7.6-11.3); RBC Red Blood Cell Count 2.88 M/uL (3.86-4.86)
[2021-12-10 04:47] LABS: AST/SGOT 7 U/L (15-37); Albumin 2.8 g/dL (3.4-5.0); Alkaline Phosphatase 52 U/L (45-117); BUN Blood Urea Nitrogen 5 mg/dL (7-18); Bicarbonate 24 mmol/L (21-32); Bilirubin Total 0.6 mg/dL (0.2-1.0); Glomerular Filtration Rate 134 ml/min (=/>90); Glucose Level 93 mg/dL (74-106); Magnesium 1.7 mg/dL (1.8-2.4); Potassium 3.5 mmol/L (3.5-5.1); Protein, Total 6.7 g/dL (6.4-8.2); Sodium Level 132 mmol/L (136-145)
[2021-12-10 04:58] LABS: ALT/SGPT < 10 U/L (12-78)
[2021-12-10] MEDS ORDERED: MAGNESIUM SULFATE 1 gm IVPB 1 GM/100 ML BAG IV ONE (05:03)
[2021-12-10] MEDS ORDERED: POTASSIUM CL SA 10 MEQ TAB PO ONE (05:08)
--- NOTE | 2021-12-10 06:11 | P.PN ---
Date of Service: 12/10/21 Subjective: Slight improvement of pain No new symptoms ROS: 10 point ROS as noted above, otherwise negative Physical exam GEN: Alert, oriented, NAD CV: Regular rate and rhythm, no edema Pulm: Nonlabored respirations on room air ABD: Soft, RLQ tenderness on deep palpation Neuro: Normal speech, normal affect Problem List intrabdominal abscess s/p laparoscopic appendectomy SIRS 06/22: leukocytosis: 19k, afebrile, no tachypnea, no tachycardia; not septic Leukocytosis up to 20 this morning blood culture obtained, no growth so far continue zosyn ID and general surgery consulted large abscess pain medication as needed stool softener continue clear liquid diet, concern patient may develop ileus may require extended course of IV antibiotics VTE: lovenox Code: full Dispo: home, ~3 days Time Spent Managing Pts Care (In Minutes): 35
[2021-12-10] MEDS: ENOXAPARIN 40 MG/0.4 ML SQ SCH (08:17)
[2021-12-10] MEDS: DOCUSATE NA 100 MG CAP PO SCH ×2 (08:18→20:18)
[2021-12-10] MEDS: NA CHLORIDE 0.9% 1,000 ML IV SCH ×3 (12:00→22:00)
--- NOTE | 2021-12-10 12:23 | P.CNS ---
Date of Consult: 12/10/21 Chief Complaint: intrabdominal abscess s/p lap appy History of Present Illness: The patient is a 21-year-old female with no known past medical history not taking any current medications who presented to the emergency department secondary to severe right flank/lower back pain. Patient states that her symptoms began on Monday night/early morning. Of note, patient was recently hospitalized at this facility and underwent an appendectomy approximately 2 weeks [address] performed [address] Dr. Wise. She had a HOLLY drain placed which she was sent home with and removed on 12/02. Patient was discharged with pain medication. CT scan obtained on admission showed a large pelvic abscess. Blood cultures pending, WBC elevated, patient afebrile and hemodynamically stable. Zosyn started on admission. Infectious disease has been consulted to manage patient's antibiotic regimen. She currently denies nausea/vomiting/diarrhea/shortness of breath/chest pain. She reports severe abdominal/right flank pain and states that she is unable to get comfortable/cannot lay down or on her right side. Allergies No Known Allergies Allergy (Verified 11/26/21 22:16) Home Medications: NK [No Home Meds] 11/26/21 - Past Medical/Surgical History Diabetic: No -: laparoscopic appendectomy - Social History Alcohol use: No CD- Drugs: No Caffeine use: Yes Place of Residence: Home Review of Systems 10-point ROS is otherwise unremarkable Physical Examination Temp Pulse Resp BP Pulse Ox 99.9 F 107 H 14 105/54 L 95 12/10/21 08:00 12/10/21 08:00 12/10/21 08:00 12/10/21 08:00 12/10/21 08:00 General: Alert, In no apparent distress, Oriented x3 HEENT: Atraumatic Neck: Supple, 2+ carotid pulse no bruit Respiratory: Clear to auscultation bilaterally, Normal air movement Cardiovascular: No edema, Normal pulses Gastrointestinal: Other (abdominal bloating/slight distention) Musculoskeletal: No clubbing, No swelling, No contractures Laboratory Data (last 24 hrs) 12/09/21 13:14: Sodium 135 L, Potassium 3.7, BUN 6 L, Creatinine 0.58, Glucose 98, Total Bilirubin 0.7, AST 11 L, ALT 14, Alkaline Phosphatase 60, Lipase 34 L 12/09/21 13:14: WBC 19.5 H D, Hgb 10.8 L, Hct 31.6 L D, Plt Count 459 H D Conclusions/Impression: Antibiotics: Zosyn: 12/09current Assessment/plan Intra-abdominal abscess Patient had appendectomy approximately [address] abdomen pelvis obtained on admission showed intra-abdominal abscess measuring approximately 12.1 x 13.4 x 11.9 cm Recommend continuing Zosyn at this time Leukocytosis Continue to monitor Anemia Continue to monitor H&H Plan of care discussed with Dr. Wolff Thank you for consultation
--- NOTE | 2021-12-10 18:48 | CON ---
Date of Consultation: 12/10/2021 Diagnosis: Intraabdominal abscess. History Of Present Illness: This is a case of a 21-year-old female who had surgery done by a 1 of a local surgeon Dr. Olson about a week and a half ago, that consists of a laparoscopic appendectomy. The patient subsequently was sent home. Followed in office about 2 days ago, and she was feeling go od until last night when she started feeling different and she decided to come to the ER. During the workup, the patient found to have leukocytosis and also a CAT scan showing the intraabdominal absces s. Dr. Olson is out of town at this moment. I was on-call, so they asked me to see the patient ri t now. He communicated also and they communicated him about the findings. The patient is awake, a lert, and she is not in distress, but she is having some abdominal pain. She denies any fever. Carlos es any shortness of breath, any chest pain. The patient has lower abdominal pain and obviously has b loating present. She denies any trauma. She states she has not taken any antibiotics at home. Ther e is no dysuria, hematuria, hematochezia, or melena. Past Medical History: None. Family History: Noncontributory. Social History: Does smoke. Does not drink alcohol. Medications: None. Review of Systems: Some nausea, bloating. See H and P for details. Ten points otherwise unremarkable. Physical Examination: General: The patient is awake, alert, in no distress. Eyes: Pupils are equal and reactive anicteric. Neck: Supple. Chest: Clear. Abdomen: Softly distended. Mild lower abdominal pain. No guarding or rebound. Rectal: Deferred. Pelvic: Deferred. Extremities: Good capillary refill. Laboratory Data: Blood work was reviewed with a WBC count of 20. CAT scan of the abdomen and pelvis shows an intraabdominal bowel abscess multilobulated not able to do percutaneous drainage per radiol ogist. Assessment: This is a 21-year-old patient with intraabdominal abscess. Patient had appendectomy don e about a week and a half ago. Multilobulated. Patient feels better no peritonitis at this moment. The patient was admitted for IV antibiotics. She understands the options that we may need explorati on, although she preferred not to do so. Obviously, so she is willing to be admitted to the hospital for IV antibiotics. If she develops any peritonitis or any other clinical symptoms that may return exploration, she will consent for that at that moment. I informed also I would not be here over the weekend. Dr. Poe will be covering the surgical service until Dr. Olson comes back next week and we will follow with him to see what is his next option. She may need long-term antibiotics. I belie ve Infectious Disease should be consulted. Activity as tolerated. Ambulation. HM/MODL Voice ID: [id number] Report ID: [id number]
[2021-12-10] MEDS: ACETAMINOPHEN 500 MG TAB PO PRN (20:18)
[2021-12-11] MEDS: PIPER TAZO 3.375 GM in NA CHLORIDE 0.9% 100 ML IV SCH ×3 (02:00→16:45)
[2021-12-11] MEDS: HYDROMORPHONE HCL 1 MG/ML INJ IV PRN ×5 (02:05→20:17)
[2021-12-11 05:17] LABS: Absolute Lymphocytes (CBC) 1.6 K/uL (0.7-4.9); Hematocrit 26.2 % (36.0-45.0); Lymphocytes % 10.2 % (15.3-44.8); MCV 91.7 fL (80-100); MPV 8.2 fL (7.6-11.3); RBC Red Blood Cell Count 2.86 M/uL (3.86-4.86)
[2021-12-11 05:31] LABS: Albumin 2.8 g/dL (3.4-5.0); Bilirubin Total 0.6 mg/dL (0.2-1.0); Magnesium 1.8 mg/dL (1.8-2.4); Potassium 3.8 mmol/L (3.5-5.1); Protein, Total 6.8 g/dL (6.4-8.2)
--- NOTE | 2021-12-11 06:11 | P.PN ---
Date of Service: 12/11/21 Subjective: feels pain is slightly better still needing IV pain medication around the clock no nausea/vomiting +flatus, no BM ROS: 10 point ROS as noted above, otherwise negative Physical exam GEN: Alert, oriented, NAD CV: Regular rate and rhythm, no edema Pulm: Nonlabored respirations on room air ABD: Soft, RLQ tenderness on deep palpation Neuro: Normal speech, normal affect Problem List Sepsis secondary to intrabdominal abscess s/p laparoscopic appendectomy correctoin: on admission SIRS 2/4: leukocytosis: 19k, afebrile, no tachypnea, HR: 105 BP ok, negative lactate. continue Zosyn Leukocytosis improved blood culture negative ID and general surgery consulted large abscess pain medication as needed stool softener continue liquid diet, concern patient may develop ileus may require extended course of IV antibiotics VTE: lovenox Code: full Dispo: home, ~2-3 days Time Spent Managing Pts Care (In Minutes): 35
[2021-12-11] MEDS ORDERED: MAGNESIUM SULFATE 1 gm IVPB 1 GM/100 ML BAG IV ONE (06:40)
[2021-12-11] MEDS ORDERED: KCL 20 MEQ/100 mL IVPB 20 MEQ/100 ML BAG IV ONE (07:00)
[2021-12-11] MEDS: DOCUSATE NA 100 MG CAP PO SCH ×2 (08:52→20:17)
[2021-12-11] MEDS: HYDROCODONE/APAP 5/325 MG TAB PO PRN ×3 (08:53→22:34)
[2021-12-11] MEDS: ENOXAPARIN 40 MG/0.4 ML SQ SCH (08:54)
--- NOTE | 2021-12-11 10:14 | P.PN ---
Date of Service: 12/11/21 Subjective: Covering for Dr. Garrett. I have reviewed the entire chart. Patient is awake and alert with lower back pain. Patient denies nausea or vomiting but has had diarrhea. No blood in her stool. Patient is tolerating full liquid diet. Objective: Vital signs are significant for heart rate of 115 and temperature of 99.4 otherwise her vitals are stable. Her white count is 15.3 which is down from 20,000. Abdomen: Soft, slightly distended, positive bowel sounds, minimal tenderness in the pelvic, suprapubic region and right lower quadrant. Assessment: Status post laparoscopic appendectomy approximately 2 weeks ago with pelvic abscess Multi loculated Plan: We will continue IV antibiotics and medical management for the next 24 to 48 hours as patient is slowly improving. If the patient's clinical condition does not improve significantly over the next 24 to 48 hours she may benefit from interventional radiology placing 1 or 2 drains. Depending upon the patient's condition, I will discussed the case with the interventional radiologist on Monday. At this time, patient does not require urgent surgical intervention. CC:
[2021-12-11] MEDS: NA CHLORIDE 0.9% 1,000 ML IV SCH ×2 (15:09→18:00)
[2021-12-11] MEDS: ACETAMINOPHEN 500 MG TAB PO PRN ×2 (15:35→22:34)
[2021-12-12] MEDS: PIPER TAZO 3.375 GM in NA CHLORIDE 0.9% 100 ML IV SCH ×3 (01:03→16:20)
[2021-12-12 03:53] LABS: Absolute Lymphocytes (CBC) 1.5 K/uL (0.7-4.9); Hematocrit 26.1 % (36.0-45.0); Lymphocytes % 13.1 % (15.3-44.8); MPV 7.8 fL (7.6-11.3); RBC Red Blood Cell Count 2.84 M/uL (3.86-4.86)
[2021-12-12 04:05] LABS: ALT/SGPT 16 U/L (12-78); AST/SGOT 16 U/L (15-37); Albumin 2.6 g/dL (3.4-5.0); Alkaline Phosphatase 71 U/L (45-117); Bicarbonate 24 mmol/L (21-32); Bilirubin Total 0.4 mg/dL (0.2-1.0); Glomerular Filtration Rate 137 ml/min (=/>90); Glucose Level 90 mg/dL (74-106); Magnesium 1.9 mg/dL (1.8-2.4); Potassium 3.8 mmol/L (3.5-5.1); Protein, Total 6.9 g/dL (6.4-8.2); Sodium Level 136 mmol/L (136-145)
[2021-12-12] MEDS: HYDROMORPHONE HCL 1 MG/ML INJ IV PRN ×5 (04:10→19:32)
[2021-12-12] MEDS: NA CHLORIDE 0.9% 1,000 ML IV SCH ×4 (04:11→19:32)
[2021-12-12 04:16] LABS: BUN Blood Urea Nitrogen < 3 mg/dL (7-18)
--- NOTE | 2021-12-12 06:03 | P.PN ---
Date of Service: 12/12/21 Subjective: more pain this morning, in lower back small loose stool this morning, pelvic/lower back pain with BM no pain with urination no worsening n/v intermittent fever, tachycardia ROS: 10 point ROS as noted above, otherwise negative Physical exam GEN: Alert, oriented, uncomfortable appearing CV: Regular rate and rhythm, no edema Pulm: Nonlabored respirations on room air ABD: Soft, RLQ tenderness on deep palpation Neuro: Normal speech, normal affect Problem List Sepsis secondary to intrabdominal abscess s/p laparoscopic appendectomy on admission SIRS 2/4: leukocytosis: 19k, afebrile, no tachypnea, HR: 105 continues with intermittent fever leukocytosis improving pain was improving up until 12/[address] ordered, shows increased size of abscess discussed with general surgery, NPO after midnight CT read as difficult location and recommended against attempt for IR drainage will likely need to go to OR for evacuation / washout continue Zosyn blood culture negative ID and general surgery consulted pain medication as needed stool softener NPO @ MN, IVF VTE: lovenox (hold for possible surgery), SCDs Code: full Dispo: home, ~4-5 days Time Spent Managing Pts Care (In Minutes): 35
[2021-12-12] MEDS: ENOXAPARIN 40 MG/0.4 ML SQ SCH (07:38)
[2021-12-12] MEDS: DOCUSATE NA 100 MG CAP PO SCH ×2 (07:39→19:32)
[2021-12-12] MEDS ORDERED: POTASSIUM 25 MEQ EFFERV TAB PO ONE (08:00)
--- NOTE | 2021-12-12 09:58 | P.PN ---
Date of Service: 12/12/21 Subjective: Patient is complaining of lower back pain. Patient is having multiple bowel movements. Objective: Vital signs are significant for heart rate of 105 and temperature of 99.5 otherwise her vitals are stable. Her white count has improved to 11.5 Abdomen: Soft, slightly distended, positive bowel sounds, minimal tenderness in the pelvic, suprapubic region and right lower quadrant. Assessment: Status post laparoscopic appendectomy approximately 2 weeks ago with pelvic abscess--multiloculated, clinically she is improving slowly Plan: We will continue IV antibiotics and medical management for the next 24 to 48 hours as patient is slowly improving. I discussed with interventional radiologist the options of percutaneous drainage. He felt that it would be futile to attempt percutaneous drainage. As patient is slowly improving, we will continue current management. When Dr. Olson returns to [facility], I will discussed the case with him in detail. CC:
[2021-12-12] MEDS ORDERED: HYDROMORPHONE HCL 1 MG/ML INJ IV ONE (12:15)
--- NOTE | 2021-12-12 13:29 | RAD REPORT ---
EXAM DESCRIPTION: CT - Abdomen Pelvis W Contrast - 12/12/2021 12:38 pm CLINICAL HISTORY: worsening back pain COMPARISON: Abdomen Pelvis W Contrast dated 12/09/2021; Abdomen Pelvis W Contrast dated 11/26/2021 TECHNIQUE: Biphasic, helical CT imaging of the abdomen and pelvis was performed following 100 ml non -ionic IV contrast. No oral contrast administered. All CT scans are performed using dose optimization technique as appropriate and may include automated exposure control or mA/KV adjustment according to patient size. FINDINGS: No suspicious findings in the lung bases. The liver, spleen, and pancreas show no suspicious findings. Gallbladder and biliary tree are also wi thout suspicious finding. Symmetric renal function is seen and does not appear to be delayed. No acute renal parenchymal proces s seen. Bilateral hydronephrosis is present down to the pelvis likely due to extrinsic compression fr om subsequently detailed pelvic findings. No pyelonephrosis. Hart of the ureters do not appear to be abnormally thickened or edematous. Partially filled urinary bladder shows no gross abnormality. No a drenal abnormalities. No new uterine finding. Again noted are large multiloculated fluid collections with enhancing hart i n the bilateral head neck is in the cul de sac. Cul-de-sac collection is approximately 8.5 cm with mu ltiple bilateral adnexal collections up to 6 cm. Ovaries are not clearly distinguishable. There is so me suggest in the adnexal fluid collections have a tortuous, tubular configuration. Cul-de-sac collec tion is not clearly changed. There is apparent slight enlargement of the adnexal collections. No gastric dilatation or gastric wall thickening. Multiple distended but nondilated fluid-filled smal l bowel loops are present unchanged from prior imaging. No acute colon finding. No free air or pneumatosis. No hernia, mass or bulky lymphadenopathy. No suspicious bony findings. Cul de sac and bilateral adnexal abscesses remain the favored diagnosis. As detailed previously, perc utaneous access may not be successful due to the cul-de-sac location in the complexity the multiple c ollections many which are blocked by bowel. Additionally, there is some suggestion of a tubular confi guration to the adnexal collections. Pyosalpinx secondary to a surgically treated perforated appendic itis would be unusual and therefore lesser in likelihood than multiloculated abscesses. IMPRESSION: Large bilateral multiloculated adnexal fluid collections with large adnexal fluid collec tion all of which show enhancing thickened rim or wall. The adnexal collections appear slightly larg er than December 09 imaging. No free air or pneumatosis has developed. The bilateral hydronephrosis likely from extrinsic compress ion is remains stable. Patient has developed multiple distended but nondilated fluid-filled small bowel loops likely seconda ry to the pelvic process. Multiloculated abscesses remains the primary consideration. As detailed above and on prior study due to the location of these collections with adjacent small bowel, percutaneous access may not be able t o successfully drained these collections. There is some suggestion of tortuous tubular configuration to the adnexal collections that can be see n with a pyosalpinx. Development of pyosalpinx as a complication of already surgically treated append icitis would be an unusual.
[2021-12-12] MEDS: ACETAMINOPHEN 500 MG TAB PO PRN (19:32)
[2021-12-12 21:18] VITALS: BMI 26.6
[2021-12-12] MEDS: HYDROCODONE/APAP 5/325 MG TAB PO PRN (22:53)
[2021-12-13] MEDS: PIPER TAZO 3.375 GM in NA CHLORIDE 0.9% 100 ML IV SCH ×3 (02:08→16:37)
[2021-12-13] MEDS: HYDROMORPHONE HCL 1 MG/ML INJ IV PRN ×4 (02:08→11:54)
[2021-12-13] MEDS: NA CHLORIDE 0.9% 1,000 ML IV SCH ×3 (05:45→19:43)
[2021-12-13 05:49] LABS: Absolute Lymphocytes (CBC) 1.3 K/uL (0.7-4.9); Hematocrit 25.4 % (36.0-45.0); MCV 91.3 fL (80-100); RBC Red Blood Cell Count 2.79 M/uL (3.86-4.86)
[2021-12-13 06:02] LABS: Albumin 2.5 g/dL (3.4-5.0); Bilirubin Total 0.6 mg/dL (0.2-1.0); Magnesium 1.8 mg/dL (1.8-2.4); Potassium 3.7 mmol/L (3.5-5.1); Protein, Total 6.6 g/dL (6.4-8.2)
[2021-12-13] MEDS ORDERED: MAGNESIUM SULFATE 1 gm IVPB 1 GM/100 ML BAG IV ONE (06:15)
--- NOTE | 2021-12-13 06:33 | P.PN ---
Date of Service: 12/13/21 Subjective: pain ok with dilaudid q3h now WBC down still intermittent fever loose stool ROS: 10 point ROS as noted above, otherwise negative Physical exam GEN: Alert, oriented, uncomfortable appearing CV: Regular rate and rhythm, no edema Pulm: Nonlabored respirations on room air ABD: Soft, RLQ tenderness on deep palpation Neuro: Normal speech, normal affect Problem List Sepsis secondary to intrabdominal abscess s/p laparoscopic appendectomy on admission SIRS 2/4: leukocytosis: 19k, afebrile, no tachypnea, HR: 105 continues with intermittent fever leukocytosis improving pain was improving up until 12/[address] ordered, shows increased size of abscess CT read as difficult location and recommended against attempt for IR drainage Dr. Wise to evaluate further today, possible surgery tomorrow continue Zosyn blood culture negative ID and general surgery consulted pain medication as needed stool softener NPO @ MN, IVF VTE: SCDs Code: full Dispo: home, ~3-4 days Time Spent Managing Pts Care (In Minutes): 35
[2021-12-13] MEDS ORDERED: KCL 20 MEQ/100 mL IVPB 20 MEQ/100 ML BAG IV SCH (07:00)
[2021-12-13] MEDS: DOCUSATE NA 100 MG CAP PO SCH ×2 (07:35→19:39)
[2021-12-13] MEDS ORDERED: DIAZEPAM 5 MG TABLET PO ONE (13:47)
--- NOTE | 2021-12-13 14:07 | P.PN ---
Date of Service: 12/13/21 S: Patient complaining of more pelvic pain today. Says she has been doing okay, but pain medicine has not been as controlled. O: Abdomen is soft, some fullness in the lower portion of the abdomen. A: This 21-year-old female is a patient of mine who presented back to the emergency room with pelvic pain 1 day after having been seen in the office and cleared to go back to work. She initially had a ruptured appendix with a marked amount of adhesions in the right lower quadrant involving the adnexa and bladder. Postoperatively, after her initial laparoscopic appendectomy with omental resection, she had a HOLLY drain. However on the day she presents back to the emergency room she was having severe pelvic pain. CT scan reveals a loculated abscess in the pelvis. She was admitted at that time, and started on IV antibiotics. This multi loculated abscess is not amenable to percutaneous drainage. P: I have discussed the findings with the patient. She is having a lot of pelvic pain today. Her surgical versus conservative options were outlined. She wants to get this drained, as she cannot stand the pressure in her pelvis a nymore. The risks of the procedure were discussed in detail. The possibility of bleeding, infection, further abscess formation were outlined. We will attempt to do it laparoscopically and the inherent risk with that were explained. Should we not be able to do it laparoscopically we would convert to an open procedure. This again would involve incisions, scar formation, potential for hernias etc. She understands and wants to proceed. I will change her pain medicine today, I will give her some Valium as well to relieve some of the spasm. She will be made n.p.o. at midnight. Anticipate surgery tomorrow. Of course we will rediscuss with her in the morning.
[2021-12-13] MEDS: MORPHINE 4 MG/ML SYR IV PRN ×2 (16:40→19:37)
--- NOTE | 2021-12-13 17:29 | P.PN ---
Subjective Date of Service: 12/13/21 Chief Complaint: intrabdominal abscess s/p lap appy Patient seen and examined at bedside, plan for surgery tomorrow for I&D of intra-abdominal abscess. Review of Systems 10-point ROS is otherwise unremarkable Physical Examination - Vital Signs Temperature: 98.2 F Blood Pressure: 132/72 Pulse: 100 Respirations: 18 Pulse Ox (%): 100 - Studies Laboratory Last Values WBC 20.4 K/uL (4.3-10.9) H* 12/10/21 03:44 RBC 2.88 M/uL (3.86-4.86) L 12/10/21 03:44 Hgb 9.1 g/dL (12.0-15.0) L 12/10/21 03:44 Hct 26.2 % (36.0-45.0) L D 12/10/21 03:44 MCV 90.9 fL (80-100) 12/10/21 03:44 MCH 31.4 pg (27.0-35.0) 12/10/21 03:44 MCHC 34.6 g/dL (32.0-36.0) 12/10/21 03:44 RDW 12.5 % (12.1-15.2) 12/10/21 03:44 Plt Count 371 K/uL (152-406) 12/10/21 03:44 MPV 7.7 fL (7.6-11.3) 12/10/21 03:44 Neutrophils % 87.2 % (41.7-73.7) H 12/10/21 03:44 Lymphocytes % 5.6 % (15.3-44.8) L 12/10/21 03:44 Monocytes % 6.8 % (3.3-12.3) 12/10/21 03:44 Eosinophils % 0.2 % (0-4.4) 12/10/21 03:44 Basophils % 0.2 % (0-1.3) 12/10/21 03:44 Absolute Neutrophils 17.8 K/uL (1.8-8.0) H 12/10/21 03:44 Absolute Lymphocytes 1.1 K/uL (0.7-4.9) 12/10/21 03:44 Absolute Monocytes 1.4 K/uL (0.1-1.3) H 12/10/21 03:44 Absolute Eosinophils 0.0 K/uL (0-0.5) 12/10/21 03:44 Absolute Basophils 0.0 K/uL (0-0.5) 12/10/21 03:44 Platelet Estimate Incr 12/09/21 13:14 Morphology Comment Not seen (NOT SEEN) 12/09/21 13:14 Sodium 132 mmol/L (136-145) L 12/10/21 03:44 Potassium 3.5 mmol/L (3.5-5.1) 12/10/21 03:44 Chloride 102 mmol/L (98-107) 12/10/21 03:44 Carbon Dioxide 24 mmol/L (21-32) 12/10/21 03:44 Anion Gap 9.5 mEq/L (5.0-15.0) 12/10/21 03:44 BUN 5 mg/dL (7-18) L 12/10/21 03:44 Creatinine 0.55 mg/dL (0.55-1.3) 12/10/21 03:44 Est GFR (CKD-EPI) 134 ml/min (=/>90) 12/10/21 03:44 Glucose 93 mg/dL (74-106) 12/10/21 03:44 Lactic Acid 0.7 mmol/L (0.4-2.0) 12/09/21 15:20 Calcium 8.5 mg/dL (8.5-10.1) 12/10/21 03:44 Magnesium 1.7 mg/dL (1.8-2.4) L 12/10/21 03:44 Total Bilirubin 0.6 mg/dL (0.2-1.0) 12/10/21 03:44 AST 7 U/L (15-37) L 12/10/21 03:44 ALT < 10 U/L (12-78) L 12/10/21 03:44 Alkaline Phosphatase 52 U/L (45-117) 12/10/21 03:44 Serum Total Protein 6.7 g/dL (6.4-8.2) 12/10/21 03:44 Albumin 2.8 g/dL (3.4-5.0) L 12/10/21 03:44 Globulin 3.9 g/dL (2.3-3.5) H D 12/10/21 03:44 Albumin/Globulin Ratio 0.7 (1.1-1.8) L 12/10/21 03:44 Lipase 34 U/L (73-393) L 12/09/21 13:14 Urine pH 7.5 (5.0-7.0) H 12/09/21 12:13 Ur Specific Adams 1.020 (1.005-1.030) 12/09/21 12:13 Glucose (UA)(Auto) Negative (Negative) 12/09/21 12:13 Urine Ketones 4+ (Negative) H 12/09/21 12:13 Urine Blood 2+ (Negative) H 12/09/21 12:13 Urine Nitrite Negative (Negative) 12/09/21 12:13 Ur Leukocyte Esterase Negative (Negative) 12/09/21 12:13 Urine Total Protein 1+ (Negative) H 12/09/21 12:13 Ur Specific Adams (HCG) 1.020 (1.005-1.030) 12/09/21 12:17 Urine Test Neg (NEG) 12/09/21 12:17 SARS-CoV-2 Rap RNA(RT-PCR) Negative (NEGATIVE) 12/09/21 13:58 Smear Scan Ok (OK) 12/09/21 13:14 Assessment And Plan - Plan Physical exam: General: Alert, In no apparent distress, Oriented x3 HEENT: Atraumatic Neck: Supple, 2+ carotid pulse no bruit Respiratory: Clear to auscultation bilaterally, Normal air movement Cardiovascular: No edema, Normal pulses Gastrointestinal: Other (abdominal bloating/slight distention) Musculoskeletal: No clubbing, No swelling, No contractures Conclusions/Impression: Antibiotics: Zosyn: 12/09current Assessment/plan Intra-abdominal abscess Patient had appendectomy approximately [address] abdomen pelvis obtained on admission showed intra-abdominal abscess measuring approximately 12.1 x 13.4 x 11.9 cm Recommend continuing Zosyn at this time -Plan for drain intra-abdominal abscess, attempt laparoscopic with possible convert to open procedure form by Dr. Wise. Leukocytosis Resolved Anemia Continue to monitor H&H Plan of care discussed with Dr. Wolff Thank you for consultation
[2021-12-13] MEDS: HYDROCODONE/APAP 5/325 MG TAB PO PRN (20:21)
[2021-12-13] MEDS: DIAZEPAM 5 MG TABLET PO PRN (21:54)
[2021-12-13] MEDS: HYDROMORPHONE HCL 2 MG/ML inj IV PRN (22:31)
[2021-12-14] MEDS: PIPER TAZO 3.375 GM in NA CHLORIDE 0.9% 100 ML IV SCH ×3 (01:19→17:01)
[2021-12-14] MEDS: NA CHLORIDE 0.9% 1,000 ML IV SCH ×2 (03:29→16:52)
[2021-12-14] MEDS: HYDROMORPHONE HCL 2 MG/ML inj IV PRN ×2 (03:31→09:37)
[2021-12-14 03:55] LABS: Absolute Lymphocytes (CBC) 1.7 K/uL (0.7-4.9); Hematocrit 25.7 % (36.0-45.0); Lymphocytes % 14.9 % (15.3-44.8); MCV 90.3 fL (80-100); RBC Red Blood Cell Count 2.85 M/uL (3.86-4.86)
[2021-12-14 04:06] LABS: ALT/SGPT 29 U/L (12-78); AST/SGOT 18 U/L (15-37); Albumin 2.7 g/dL (3.4-5.0); Alkaline Phosphatase 97 U/L (45-117); Bicarbonate 25 mmol/L (21-32); Bilirubin Total 0.4 mg/dL (0.2-1.0); Glomerular Filtration Rate 144 ml/min (=/>90); Glucose Level 89 mg/dL (74-106); Potassium 3.7 mmol/L (3.5-5.1); Protein, Total 7.1 g/dL (6.4-8.2); Sodium Level 136 mmol/L (136-145)
[2021-12-14 04:07] LABS: BUN Blood Urea Nitrogen < 3 mg/dL (7-18)
[2021-12-14] MEDS ORDERED: KCL 20 MEQ/100 mL IVPB 20 MEQ/100 ML BAG IV SCH (07:00)
[2021-12-14] MEDS ORDERED: ACETAMINOPHEN 500 MG TAB ONE (12:09)
[2021-12-14] MEDS ORDERED: CELECOXIB 100 MG CAPSULE ONE (12:10)
[2021-12-14] MEDS ORDERED: LIDOCAINE 2% MPF 5 ML VIAL ONE (12:21)
[2021-12-14] MEDS ORDERED: dexAMETHasone 10 MG/ML VIAL ONE (12:21)
[2021-12-14] MEDS ORDERED: ROCURONIUM 50 MG/5 ML VIAL IV ONE (12:21)
[2021-12-14] MEDS ORDERED: MIDAZOLAM HCL 2 MG/2 ML INJ ONE (12:21)
[2021-12-14] MEDS ORDERED: KETOROLAC 30 MG/ML INJ ONE ×2 (12:21→15:53)
[2021-12-14] MEDS ORDERED: FENTANYL CITR 100 MCG/2 ML ONE (12:21)
[2021-12-14] MEDS ORDERED: propofoL 200 MG/20 ML VIAL IV ONE (12:21)
[2021-12-14] MEDS ORDERED: ONDANSETRON 4 MG/2 ML VIAL ONE (12:23)
[2021-12-14] MEDS ORDERED: Ringers Lactate 1,000 ML IV ONE (12:40)
[2021-12-14] MEDS ORDERED: FENTANYL CITR 250 MCG/5 ML ONE (13:17)
[2021-12-14] MEDS ORDERED: NS 0.9% VIAL 10 ML ONE (13:24)
[2021-12-14] MEDS ORDERED: VECURONIUM 10 MG/VIAL IV ONE (13:24)
[2021-12-14] MEDS ORDERED: SUGAMMADEX SODIUM 200 MG/2 ML VIAL IV ONE (14:49)
--- NOTE | 2021-12-14 15:47 | P.OP ---
Preoperative diagnosis: Pelvic abscesses Postoperative diagnosis: Pelvic fluid collection Primary procedure: Laparoscopy Secondary procedure: Exploratory laparotomy Other procedure(s): Drainage of intra-abdominal fluid collections Anesthesia: General anesthesia Estimated blood loss: Less than 20 cc Specimen: Cultures both aerobic and anaerobic were taken Findings: Fluid collection, no gross pus was seen Operative Technique: The patient brought the operating room with a Betadine solution, she was draped in usual aseptic manner. It should be noted a Wayne catheter was inserted during the prep.. Attention was turned towards the left side of the abdomen. Approximately 3 fingers breaths below the costal margin, a skin incision was made. The Visiport was used to carefully enter the peritoneal cavity and created pneumoperitoneum to approximately 12 mmHg. We were able to visualize the peritoneal cavity. We could see there were no adhesions at the umbilicus. The midline was essentially cleared down to just at the area approximately 3 fingers above the pubic bone. Here there were adhesions of the omentum to the anterior abdominal wall. A 5 mm trocar was placed in the right lateral side of the abdomen. We were now able to place a probe and there and we could gently take down some of these adhesions. They were quite firmly attached in the midline. We tried to go down the right paracolic gutter. We were unable to access the true pelvis by sweeping down general adhesions, and this was now attempted on the left side which also proved unsuccessful. Gently trying to pull apart the omentum, we could not make any progress safely into the true pelvis. Hence I made the decision to open the patient from the umbilicus down towards the pubic symphysis. This incision was brought down through the skin and subcutaneous tissue. The fascia was opened in the midline allowing access to the peritoneal cavity. Once again we could see into the true pelvis. Gentle probing around the lateral sides allowed us to identify our previously operated site. We could see the ileocecal valve quite clearly. There was some inflammatory process around the ovaries. There is fallopian tube was visualized. The uterus itself was also seen. Allowing us to place the hand between the sacrum and down into the true pelvis we were able to curve around the front. We did encounter some fluid but there was no gross pus seen in the true pelvis. This maneuver was repeated on the right-hand side. Having gone around the broad ligament we were able to reach into the true pelvis itself. Once again we did encounter some fluid, but no evidence of any abscess no foul odor smell just clear peritoneal fluid. Attention was turned towards the rest of the abdominal cavity. No other intra-abdominal pathology was noted. The small bowel was now run from the ileocecal valve, back up to the ligament of Treitz. Once again we placed the intestines back in the normal anatomical position starting at the ligament of Treitz. This allowed us to come down towards the ileocecal valve. At this point there was some question about an an chor point and possible area necrosis. I felt safer resecting the small to centimeter area using a linear stapler then leaving it behind. This having been done adequate hemostasis having been ensured the cecum was placed back in its normal anatomical position. The omentum was now freed and placed towards the true pelvis. The anterior abdominal wall was now Erin blocked with 0.25% Marcaine. This was done under direct vision and we injected about 12 cc of Marcaine. At this point the midline incision was closed with a running suture of nylon. One was started from the bottom and then up to the top. It was tied at the umbilicus. Subcutaneous tissue was now irrigated with a saline solution. Stephy were loosely applied to approximate the skin. Iodoform gauze was now placed between her staple line. At the end of the procedure the patient was in a stable condition was sent to the recovery room. Needle sponge and instrument count were correct. No drains were placed. Transferred to: Recovery Room Condition: Good
[2021-12-14] MEDS: HYDROMORPHONE HCL 1 MG/ML INJ ONE ×2 (15:52→15:57)
[2021-12-14] MEDS: HYDROMORPHONE HCL 1 MG/ML INJ IV PRN ×2 (16:08→21:31)
--- NOTE | 2021-12-14 16:59 | P.PN ---
Subjective Date of Service: 12/14/21 Chief Complaint: intrabdominal abscess s/p lap appy Exploratory laparotomy with drainage of intra-abdominal fluid collections done today. Patient has been afebrile. Physical Examination - Vital Signs Temperature: 97.4 F Blood Pressure: 120/70 Pulse: 92 Respirations: 18 Pulse Ox (%): 99 - Studies Microbiology Data (last 24 hrs): 12/09/21 15:10 Blood - Blood Aerobic Blood Culture - Final No growth in 5 days. 12/09/21 15:10 Blood - Blood Anaerobic Blood Culture - Final No growth in 5 days. 12/09/21 15:20 Blood - Blood Aerobic Blood Culture - Final No growth in 5 days. 12/09/21 15:20 Blood - Blood Anaerobic Blood Culture - Final No growth in 5 days. Assessment And Plan - Plan Physical exam GEN: Alert, oriented, in moderate distress due to pain CV: Tachycardia and regular rhythm, no edema Pulm: Nonlabored respirations on room air ABD: Soft, RLQ tenderness. Normal bowel sounds. Extremities: No edema. Neuro: Normal speech, normal affect Problem List Sepsis secondary to intrabdominal abscess s/p laparoscopic appendectomy leukocytosis improving pain was improving up until 12/[address] showed increased size of abscess CT read as difficult location and recommended against attempt for IR drainage Patient seen by Dr. Wise. Exploratory laparotomy performed and drainage of intra-abdominal fluid collections done. Patient seen by ID. continue Zosyn blood culture negative pain medication as needed Clear liquid diet per surgery-Dr. Wise. Continue IV fluid.
[2021-12-14] MEDS: DIAZEPAM 5 MG TABLET PO PRN (21:45)
[2021-12-15] MEDS: HYDROMORPHONE HCL 1 MG/ML INJ IV PRN ×9 (00:58→22:38)
[2021-12-15] MEDS: PIPER TAZO 3.375 GM in NA CHLORIDE 0.9% 100 ML IV SCH ×3 (00:58→16:48)
[2021-12-15 04:02] LABS: Absolute Lymphocytes (CBC) 0.8 K/uL (0.7-4.9); Hematocrit 26.5 % (36.0-45.0); Lymphocytes % 4.7 % (15.3-44.8); MPV 8.1 fL (7.6-11.3); RBC Red Blood Cell Count 2.95 M/uL (3.86-4.86)
[2021-12-15] MEDS: NA CHLORIDE 0.9% 1,000 ML IV SCH ×3 (04:04→20:57)
[2021-12-15 04:13] LABS: Potassium 4.4 mmol/L (3.5-5.1)
--- NOTE | 2021-12-15 10:40 | P.PN ---
Subjective Date of Service: 12/15/21 Chief Complaint: intrabdominal abscess s/p lap appy Status post exploratory laparotomy with drainage of intra-abdominal fluid collections yesterday. Patient states she feels better with less pain. No recorded fever past 24 hours. She has been tolerating liquid diet. Physical Examination - Vital Signs Temperature: 96.8 F Blood Pressure: 124/56 Pulse: 75 Respirations: 14 Pulse Ox (%): 98 - Physical Exam General: Alert, In no apparent distress, Oriented x3 HEENT: Mucous membr. moist/pink Neck: JVD not distended - Studies Microbiology Data (last 24 hrs): 12/09/21 15:10 Blood - Blood Aerobic Blood Culture - Final No growth in 5 days. 12/09/21 15:10 Blood - Blood Anaerobic Blood Culture - Final No growth in 5 days. 12/09/21 15:20 Blood - Blood Aerobic Blood Culture - Final No growth in 5 days. 12/09/21 15:20 Blood - Blood Anaerobic Blood Culture - Final No growth in 5 days. Assessment And Plan - Plan Physical exam GEN: Alert, oriented, NAD CV: Normal rate and regular rhythm, no edema Pulm: Nonlabored respirations on room air ABD: Soft, Non-tender. Normal bowel sounds. HOLLY drain in place. Extremities: No edema. Neuro: Normal speech, normal affect Problem List Sepsis secondary to intrabdominal abscess s/p laparoscopic appendectomy Leukocytosis is worse today. This could be related to stress from surgery. Continue to monitor CBC CT read as difficult location and recommended against attempt for IR drainage Patient seen by Dr. Wise. Exploratory laparotomy performed and drainage of intra-abdominal fluid collections done. Patient seen by ID. Continue Zosyn. Tissue culture is pending. blood culture negative pain medication as needed Clear liquid diet per surgery-Dr. Wise. Continue IV fluid until good oral intake.
--- NOTE | 2021-12-15 12:02 | P.PN ---
Subjective Date of Service: 12/15/21 Chief Complaint: intrabdominal abscess s/p lap appy Patient seen and examined at bedside status post exploratory laparotomy with drainage of intra-abdominal fluid collections and small resection of bowel. Patient recovering well, 1 left-sided HOLLY drain placed. Wayne also still placed. Review of Systems 10-point ROS is otherwise unremarkable Physical Examination - Vital Signs Temperature: 96.8 F Blood Pressure: 124/56 Pulse: 75 Respirations: 14 Pulse Ox (%): 98 - Studies Microbiology Data (last 24 hrs): 12/09/21 15:10 Blood - Blood Aerobic Blood Culture - Final No growth in 5 days. 12/09/21 15:10 Blood - Blood Anaerobic Blood Culture - Final No growth in 5 days. 12/09/21 15:20 Blood - Blood Aerobic Blood Culture - Final No growth in 5 days. 12/09/21 15:20 Blood - Blood Anaerobic Blood Culture - Final No growth in 5 days. Assessment And Plan - Plan Physical exam: General: Alert, In no apparent distress, Oriented x3 HEENT: Atraumatic Neck: Supple, 2+ carotid pulse no bruit Respiratory: Clear to auscultation bilaterally, Normal air movement Cardiovascular: No edema, Normal pulses Gastrointestinal: Abdominal binder placed, per surgery note patient has midline abdominal incision from umbilicus to pubic symphysis with elizabeth present. 1 left-sided HOLLY drain placed. Musculoskeletal: No clubbing, No swelling, No contractures Conclusions/Impression: Antibiotics: Zosyn: 12/09current Assessment/plan Intra-abdominal abscess Patient had appendectomy approximately [address] abdomen pelvis obtained on admission showed intra-abdominal abscess measuring approximately 12.1 x 13.4 x 11.9 cm -Status post exploratory laparotomy with drainage of intra-abdominal fluid collections and small resection of bowel performed by Dr. Wise on 12/14. Per operative note, no christos pus was identified however there were small areas of serous fluid collections drained. In addition there was concern for possible bowel necrosis near ileocecal valve, approximately 2 cm of bowel were removed. Patient has left-sided HOLLY drain placed. Leukocytosis noted on most recent labs, WBC 16.3. Likely reactive secondary to procedure. Continue to monitor. Recommend continuing Zosyn at this time Anemia Continue to monitor H&H Plan of care discussed with Dr. Wolff Thank you for consultation
--- NOTE | 2021-12-15 16:17 | P.PN ---
Date of Service: 12/15/21 S: Patient feels much better today. Has been up ambulating on her own. Has some clear liquids. Says the pain in her back is entirely gone. O: Vital signs are stable, incision is clean. Minimal out through HOLLY drain. A: Patient is well status post exploratory laparotomy from yesterday. It should be noted that operative note that that area of necrosis was a piece of fat on the outside of the bowel where we resected it. The suture line involved a minimal amount of the serosa. The actual linear size of this was about 1 cm. Patient continues to improve. P: Continue to ambulate patient, continue incentive spirometry. Tomorrow I will remove the iodoform gauze from her incision. We will see if it is appropriate to move the HOLLY drain pending on the volume tomorrow as well. In the meantime continue current therapy. Her pain appears to be well controlled. Patient has no specific complaints.
[2021-12-15] MEDS: HYDROCODONE/APAP 7.5/325 MG TAB PO PRN (21:24)
[2021-12-15] MEDS: DIAZEPAM 5 MG TABLET PO PRN (21:26)
[2021-12-16] MEDS: HYDROMORPHONE HCL 1 MG/ML INJ IV PRN ×10 (00:50→20:32)
[2021-12-16] MEDS: PIPER TAZO 3.375 GM in NA CHLORIDE 0.9% 100 ML IV SCH ×3 (01:01→16:06)
[2021-12-16] MEDS: HYDROCODONE/APAP 7.5/325 MG TAB PO PRN ×3 (03:21→21:46)
[2021-12-16 05:43] LABS: Absolute Lymphocytes (CBC) 1.8 K/uL (0.7-4.9); Hematocrit 22.5 % (36.0-45.0); Lymphocytes % 15.7 % (15.3-44.8); MPV 7.9 fL (7.6-11.3); RBC Red Blood Cell Count 2.48 M/uL (3.86-4.86)
[2021-12-16 05:59] LABS: Potassium 3.8 mmol/L (3.5-5.1)
[2021-12-16] MEDS: NA CHLORIDE 0.9% 1,000 ML IV SCH (08:46)
--- NOTE | 2021-12-16 11:13 | P.PN ---
Subjective Date of Service: 12/16/21 Chief Complaint: intrabdominal abscess s/p lap appy Subjective: Improving Patient seen and examined at bedside, still on liquid diet. WBC downtrending, afebrile. Review of Systems 10-point ROS is otherwise unremarkable Physical Examination - Vital Signs Temperature: 97.6 F Blood Pressure: 109/54 Pulse: 88 Respirations: 18 Pulse Ox (%): 98 - Studies Laboratory Last Values WBC 20.4 K/uL (4.3-10.9) H* 12/10/21 03:44 RBC 2.88 M/uL (3.86-4.86) L 12/10/21 03:44 Hgb 9.1 g/dL (12.0-15.0) L 12/10/21 03:44 Hct 26.2 % (36.0-45.0) L D 12/10/21 03:44 MCV 90.9 fL (80-100) 12/10/21 03:44 MCH 31.4 pg (27.0-35.0) 12/10/21 03:44 MCHC 34.6 g/dL (32.0-36.0) 12/10/21 03:44 RDW 12.5 % (12.1-15.2) 12/10/21 03:44 Plt Count 371 K/uL (152-406) 12/10/21 03:44 MPV 7.7 fL (7.6-11.3) 12/10/21 03:44 Neutrophils % 87.2 % (41.7-73.7) H 12/10/21 03:44 Lymphocytes % 5.6 % (15.3-44.8) L 12/10/21 03:44 Monocytes % 6.8 % (3.3-12.3) 12/10/21 03:44 Eosinophils % 0.2 % (0-4.4) 12/10/21 03:44 Basophils % 0.2 % (0-1.3) 12/10/21 03:44 Absolute Neutrophils 17.8 K/uL (1.8-8.0) H 12/10/21 03:44 Absolute Lymphocytes 1.1 K/uL (0.7-4.9) 12/10/21 03:44 Absolute Monocytes 1.4 K/uL (0.1-1.3) H 12/10/21 03:44 Absolute Eosinophils 0.0 K/uL (0-0.5) 12/10/21 03:44 Absolute Basophils 0.0 K/uL (0-0.5) 12/10/21 03:44 Platelet Estimate Incr 12/09/21 13:14 Morphology Comment Not seen (NOT SEEN) 12/09/21 13:14 Sodium 132 mmol/L (136-145) L 12/10/21 03:44 Potassium 3.5 mmol/L (3.5-5.1) 12/10/21 03:44 Chloride 102 mmol/L (98-107) 12/10/21 03:44 Carbon Dioxide 24 mmol/L (21-32) 12/10/21 03:44 Anion Gap 9.5 mEq/L (5.0-15.0) 12/10/21 03:44 BUN 5 mg/dL (7-18) L 12/10/21 03:44 Creatinine 0.55 mg/dL (0.55-1.3) 12/10/21 03:44 Est GFR (CKD-EPI) 134 ml/min (=/>90) 12/10/21 03:44 Glucose 93 mg/dL (74-106) 12/10/21 03:44 Lactic Acid 0.7 mmol/L (0.4-2.0) 12/09/21 15:20 Calcium 8.5 mg/dL (8.5-10.1) 12/10/21 03:44 Magnesium 1.7 mg/dL (1.8-2.4) L 12/10/21 03:44 Total Bilirubin 0.6 mg/dL (0.2-1.0) 12/10/21 03:44 AST 7 U/L (15-37) L 12/10/21 03:44 ALT < 10 U/L (12-78) L 12/10/21 03:44 Alkaline Phosphatase 52 U/L (45-117) 12/10/21 03:44 Serum Total Protein 6.7 g/dL (6.4-8.2) 12/10/21 03:44 Albumin 2.8 g/dL (3.4-5.0) L 12/10/21 03:44 Globulin 3.9 g/dL (2.3-3.5) H D 12/10/21 03:44 Albumin/Globulin Ratio 0.7 (1.1-1.8) L 12/10/21 03:44 Lipase 34 U/L (73-393) L 12/09/21 13:14 Urine pH 7.5 (5.0-7.0) H 12/09/21 12:13 Ur Specific [place] 1.020 (1.005-1.030) 12/09/21 12:13 Glucose (UA)(Auto) Negative (Negative) 12/09/21 12:13 Urine Ketones 4+ (Negative) H 12/09/21 12:13 Urine Blood 2+ (Negative) H 12/09/21 12:13 Urine Nitrite Negative (Negative) 12/09/21 12:13 Ur Leukocyte Esterase Negative (Negative) 12/09/21 12:13 Urine Total Protein 1+ (Negative) H 12/09/21 12:13 Ur Specific [place] (HCG) 1.020 (1.005-1.030) 12/09/21 12:17 Urine Test Neg (NEG) 12/09/21 12:17 SARS-CoV-2 Rap RNA(RT-PCR) Negative (NEGATIVE) 12/09/21 13:58 Smear Scan Ok (OK) 12/09/21 13:14 Assessment And Plan - Plan Physical exam: General: Alert, In no apparent distress, Oriented x3 HEENT: Atraumatic Neck: Supple, 2+ carotid pulse no bruit Respiratory: Clear to auscultation bilaterally, Normal air movement Cardiovascular: No edema, Normal pulses Gastrointestinal: Abdominal binder placed, per surgery note patient has midline abdominal incision from umbilicus to pubic symphysis with elizabeth present. 1 left-sided HOLLY drain placed. Musculoskeletal: No clubbing, No swelling, No contractures Conclusions/Impression: Antibiotics: Zosyn: 12/09current Assessment/plan Intra-abdominal abscess Patient had appendectomy approximately [address] abdomen pelvis obtained on admission showed intra-abdominal abscess measuring approximately 12.1 x 13.4 x 11.9 cm -Status post exploratory laparotomy with drainage of intra-abdominal fluid collections and small resection of bowel performed by Dr. Wise on 12/14. Per operative note, no christos pus was identified however there were small areas of serous fluid collections drained. In addition there was concern for possible b owel necrosis near ileocecal valve, approximately 2 cm of bowel were removed~per Dr. Wise's most recent noted the area of concern was determied to be a small piece of fat. Patient has left-sided HOLLY drain placed. WBC downtrending Recommend continuing Zosyn at this time -DC on levaquin and flagyl x2 weeks Anemia Continue to monitor H&H Plan of care discussed with Dr. Wolff Thank you for consultation
--- NOTE | 2021-12-16 12:33 | P.PN ---
Subjective Date of Service: 12/16/21 Chief Complaint: intrabdominal abscess s/p lap appy Status post exploratory laparotomy with drainage of intra-abdominal fluid -day 2. Patient is tolerating regular diet and reports less pain. No fever. Physical Examination - Vital Signs Temperature: 97.6 F Blood Pressure: 109/54 Pulse: 88 Respirations: 18 Pulse Ox (%): 98 Assessment And Plan - Plan Physical exam GEN: Alert, oriented, NAD CV: Normal rate and regular rhythm, no edema Pulm: Nonlabored respirations on room air ABD: Soft, Non-tender. Normal bowel sounds. HOLLY drain in place. Extremities: No edema. Neuro: Normal speech, normal affect Problem List Sepsis secondary to intrabdominal abscess s/p laparoscopic appendectomy Acute anemia-unknown etiology Exploratory laparotomy performed and drainage of intra-abdominal fluid collectio ns done by Dr. Wise Leukocytosis now trending down, patient is tolerating regular diet, no fever. She is responding well to treatment. Continue to monitor CBC ID is following. Intra-abdominal fluid culture growing gram-negative rods. Blood cultures showed no growth. Continue Zosyn. Follow cultures pain medication as needed Diet advanced solids regular diet which she is tolerating. Hemoglobin dropped to 7.7-probably dilutional or secondary to reduced oral intake. Monitor and transfuse as needed for hemoglobin less than 7. Discontinue IV fluid.
[2021-12-16] MEDS: ONDANSETRON 4 MG/2 ML VIAL IV PRN (13:59)
[2021-12-16] MEDS ORDERED: DIAZEPAM 5 MG TABLET PO ONE (14:00)
[2021-12-16] MEDS ORDERED: MAGNESIUM HYDROXIDE 8% 30 ML PO ONE (15:00)
[2021-12-16] MEDS: NYSTATIN 500,000 UNIT/5 ML UDC PO SCH ×2 (16:06→20:32)
[2021-12-16] MEDS ORDERED: PROMETHAZINE INJ 25 MG/ML AMP IV PRN (17:47)
[2021-12-16 20:26] VITALS: O2SAT 96
[2021-12-16] MEDS: DIAZEPAM 5 MG TABLET PO PRN (20:45)
[2021-12-17] MEDS: PIPER TAZO 3.375 GM in NA CHLORIDE 0.9% 100 ML IV SCH ×3 (00:32→16:02)
[2021-12-17] MEDS: HYDROMORPHONE HCL 1 MG/ML INJ IV PRN ×6 (00:32→20:54)
[2021-12-17 05:43] LABS: Absolute Lymphocytes (CBC) 1.8 K/uL (0.7-4.9); Lymphocytes % 14.9 % (15.3-44.8); MCV 91.3 fL (80-100); MPV 7.7 fL (7.6-11.3); RBC Red Blood Cell Count 2.52 M/uL (3.86-4.86)
[2021-12-17 05:55] LABS: Magnesium 1.8 mg/dL (1.8-2.4); Potassium 3.9 mmol/L (3.5-5.1)
[2021-12-17] MEDS ORDERED: MAGNESIUM SULFATE 1 gm IVPB 1 GM/100 ML BAG IV ONE (08:00)
[2021-12-17] MEDS: NYSTATIN 500,000 UNIT/5 ML UDC PO SCH ×4 (08:43→20:54)
[2021-12-17] MEDS ORDERED: POTASSIUM CL SA 10 MEQ TAB PO ONE (09:00)
[2021-12-17] MEDS ORDERED: HYDROMORPHONE HCL 1 MG/ML INJ ONE (13:40)
--- NOTE | 2021-12-17 14:24 | P.PN ---
Date of Service: 12/17/21 S: Patient feels better, in a bit of a funk. Looks well today, nervous about her HOLLY drain. O: Vital signs are stable, abdomen is soft, incision looks very good. Bam- Pate was removed. Dressings applied, abdominal binder changed A: Patient doing well, still has been asking for a lot of pain medicine I have changed it to a lower dose and extended the frequency. She is also starting to ask for some food. We will change her over to a soft diet. P: I will keep her here 1 more day, will most likely discharge in the a.m. Her white cell count was at 12,000, however she remains afebrile her hemoglobin is down to 7 but there is no evidence of any active bleeding.
[2021-12-17] MEDS: HYDROCODONE/APAP 10/325 TAB PO PRN (16:02)
--- NOTE | 2021-12-17 16:29 | P.PN ---
Subjective Date of Service: 12/17/21 Chief Complaint: intrabdominal abscess s/p lap appy Status post exploratory laparotomy with drainage of intra-abdominal fluid -day 3. Patient is tolerating regular diet. HOLLY drain with minimal drainage. Physical Examination - Vital Signs Temperature: 97.1 F Blood Pressure: 143/79 Pulse: 109 Respirations: 20 Pulse Ox (%): 95 Assessment And Plan - Plan Physical exam GEN: Alert, oriented, NAD CV: Normal rate and regular rhythm, no edema Pulm: Nonlabored respirations on room air ABD: Soft, Non-tender. Normal bowel sounds. HOLLY drain in place. Extremities: No edema. Neuro: Normal speech, normal affect Problem List Sepsis secondary to intrabdominal abscess s/p laparoscopic appendectomy Acute anemia-unknown etiology Exploratory laparotomy performed and drainage of intra-abdominal fluid collecti ons done by Dr. Wise Patient is tolerating regular diet, no fever. She is responding well to treatment. Continue to monitor CBC ID is following. Intra-abdominal fluid culture growing E. coli sensitive to Bactrim and fluoroquinolones. Outpatient antibiotics per ID. Blood cultures showed no growth. Continue Zosyn for now. Pain management as per Dr. Wise. Diet advanced to solid regular diet which she is tolerating. Hemoglobin dropped to 7.7-probably dilutional or secondary to reduced oral intake. Hemoglobin is stable around 7. Monitor and transfuse as needed for hemoglobin less than 7.
[2021-12-17] MEDS: DIAZEPAM 5 MG TABLET PO PRN (20:53)
[2021-12-18] MEDS: ACETAMINOPHEN 500 MG TAB PO PRN (01:13)
[2021-12-18] MEDS: HYDROCODONE/APAP 10/325 TAB PO PRN ×2 (01:13→09:28)
[2021-12-18] MEDS: PIPER TAZO 3.375 GM in NA CHLORIDE 0.9% 100 ML IV SCH ×2 (01:14→09:00)
[2021-12-18] MEDS: HYDROMORPHONE HCL 1 MG/ML INJ IV PRN (04:40)
[2021-12-18 05:23] LABS: Absolute Lymphocytes (CBC) 1.5 K/uL (0.7-4.9); Hematocrit 23.5 % (36.0-45.0); Lymphocytes % 10.8 % (15.3-44.8); MCV 90.7 fL (80-100); MPV 7.8 fL (7.6-11.3); RBC Red Blood Cell Count 2.59 M/uL (3.86-4.86)
[2021-12-18] MEDS: NYSTATIN 500,000 UNIT/5 ML UDC PO SCH (09:00)
--- NOTE | 2021-12-18 09:01 | P.DS ---
Admission Date: 12/10/21 Discharge Date: 12/18/21 Disposition: ROUTINE DISCHARGE Discharge Condition: GOOD Reason for Admission: intrabdominal abscess s/p lap appy Brief History of Present Illness: Patient is 21 years of age admitted with intra-abdominal abscess after an appendectomy he underwent an exploratory lap on 628 Hospital Course: Was admitted for IV antibiotics exploratory laparotomy on 62 cultures grew E. coli at the time of discharge alert oriented responsive cooperative no new complaints vital signs all stable patient to be discharged home on levofloxacin and Flagyl for 2 weeks as per ID recommendation vital signs chemistries are reviewed to follow-up with Dr. Wise as an outpatient White count is mildly elevated Vital Signs/Physical Exam: Temp Pulse Resp BP Pulse Ox 97.4 F 95 H 18 128/72 98 12/18/21 08:00 12/18/21 08:00 12/18/21 08:00 12/18/21 08:00 12/18/21 08:00 Laboratory Data at Discharge: WBC 13.9 K/uL (4.3-10.9) H 12/18/21 05:02 Hgb 7.9 g/dL (12.0-15.0) L 12/18/21 05:02 Hct 23.5 % (36.0-45.0) L 12/18/21 05:02 Plt Count 461 K/uL (152-406) H 12/18/21 05:02 Sodium 136 mmol/L (136-145) 12/18/21 05:02 Potassium 4.0 mmol/L (3.5-5.1) 12/18/21 05:02 BUN 5 mg/dL (7-18) L 12/18/21 05:02 Creatinine 0.32 mg/dL (0.55-1.3) L 12/18/21 05:02 Glucose 97 mg/dL (74-106) 12/18/21 05:02 Magnesium 1.8 mg/dL (1.8-2.4) 12/17/21 05:12 Total Bilirubin 0.4 mg/dL (0.2-1.0) 12/14/21 03:25 AST 18 U/L (15-37) 12/14/21 03:25 ALT 29 U/L (12-78) 12/14/21 03:25 Alkaline Phosphatase 97 U/L (45-117) 12/14/21 03:25 Lipase 34 U/L (73-393) L 12/09/21 13:14 Home Medications: Levofloxacin [Levaquin] 500 mg PO DAILY #14 tablet 12/18/21 Levofloxacin [Levaquin] 500 mg PO DAILY 7 Days #7 tablet 12/18/21 metroNIDAZOLE [Flagyl] 500 mg PO Q8H #21 tablet 12/18/21 metroNIDAZOLE [Flagyl] 500 mg PO Q8H 14 Days tablet 12/18/21 New Medications: metroNIDAZOLE [Flagyl] 500 mg PO Q8H #21 tablet metroNIDAZOLE [Flagyl] 500 mg PO Q8H 14 Days tablet Levofloxacin [Levaquin] 500 mg PO DAILY 7 Days #7 tablet Levofloxacin [Levaquin] 500 mg PO DAILY #14 tablet Physician Discharge Instructions: PT to take 2 wks of levaquin and Flagyll. Please inform pharmacist Diet: Regular Activity: Ad kasia Followup: Joao Wise MD [ACTIVE - CAN ADMIT] -
[2021-12-18 12:33] VITALS: BP 135/71; TEMP 99.5
== END 2021-12-18 12:15 | disposition home or self-care (01) | DRG 856 ==
LOC: ER 11:16 → INTOOBSV 15:52 → ERHOLD 15:52 → 2ND 17:33 → OBSVTOIN 12-10 14:59
PROVIDERS: ADMIT Hospitalist; ATTEND Hospitalist
PROC: 0WJG4ZZ Inspection of Peritoneal Cavity, Percutaneous Endoscopic Approach (ICD-10-PCS; 2021-12-14)
PROC: 0W9G00Z Drainage of Peritoneal Cavity with Drainage Device, Open Approach (ICD-10-PCS; principal; 2021-12-14 12:00)
DX: T81.40XA Infection following a procedure, unspecified, initial encounter (principal); A41.9 Sepsis, unspecified organism; K65.1 Peritoneal abscess; T81.44XA Sepsis following a procedure, initial encounter; D64.9 Anemia, unspecified; R19.7 Diarrhea, unspecified; B96.20 Unspecified Escherichia coli [E. coli] as the cause of diseases classified elsewhere; Z20.822 Contact with and (suspected) exposure to COVID-19
CPT/HCPCS: 36415; 74177; 80048; 80053; 81003; 81025; 83605; 83690; 83735; 85025; 87040; 87070; 87075; 87077; 87186; 87205; 94760; 96361; 96365; 96375; 99285; G0378; J1100; J1170; J1650; J2175; J2250; J2405; J2543; J2550; J2704; J3010; J3475; J3480; J3490; J7030; J7120; Q9967; U0003